=== PATIENT | male | born 1940 | race Two or more races ===

== ENCOUNTER 2017-01-26 11:36 | Inpatient (IN) | payer MEDICARE, OTHER ==
[~2017-01-26] VITALS: Ht 175.3 cm; Wt 105.7 kg
[~2017-01-26 11:36] MED LIST: ASPI1CPM PO; BICA50TA6 PO; ERGO500047 PO; GABA-534 PO; INSU3INS6 SUBCUT; LEVO50TA8 PO; METF500T4 PO; METO-306 PO; OMEG10006 PO; PIOG30TA2 PO; SIMV40TA5 PO; SITA100T PO; TAMS0.4C34 PO; TEMA15CA PO; TRAV5DRO EACHEYE; VALS320T2 PO
--- NOTE | 2017-01-26 11:36 | NUR ---
[id number] FROM [facility], BS-190. PLACED ON MONITOR AWATING MD ORDER
[2017-01-26] MEDS ORDERED: ACETAMINOPHEN ES 500 MG TABLET PO ONE (12:00)
[2017-01-26] MEDS ORDERED: CEFTRIAXONE 1GM BAG (ER ONLY) 50 ML IV ONE ×2 (12:00→13:14)
[2017-01-26] MEDS ORDERED: IV NS 0.9% 500 ML BAG IV ONE (12:00)
[2017-01-26] MEDS ORDERED: IV NS 0.9% 1,000 ML BAG IV ONE (12:00)
--- NOTE | 2017-01-26 12:55 | NUR ---
CALLED DR REAL OFFICE, DR BRITTANI PANDEY.
[2017-01-26] MEDS ORDERED: AZITHROMYCIN 500 MG in IV D5W 250 ML IV ONE (13:00)
[2017-01-26] MEDS ORDERED: VANCOMYCIN 1 GM in IV D5W 250 ML IV ONE (13:00)
[2017-01-26] MEDS ORDERED: ACETAMINOPHEN 325 MG TABLET ONE (13:14)
[2017-01-26] MEDS ORDERED: ACETAMINOPHEN ES 500 MG TABLET ONE (13:17)
[2017-01-26 13:18] LABS: BASOPHILS % (AUTO) 0.4 % (0.0-2.0); EOSINOPHILS % (AUTO) 0.2 % (0.0-6.0); HEMATOCRIT 29 % (39-51); HEMOGLOBIN 9.2 g/dL (13.5-17.5); LYMPHOCYTES # (AUTO) 1.6 /CMM (0.8-4.8); LYMPHOCYTES % (AUTO) 18.3 % (20.0-44.0); MEAN CORPUSCULAR HEMOGLOBIN 24 PG (26.0-33.0); MEAN CORPUSCULAR HGB CONC 32 g/dl (31.0-36.0); MEAN CORPUSCULAR VOLUME 75 fL (80-96); MONOCYTES # (AUTO) 0.8 /CMM (0.1-1.30); MONOCYTES % (AUTO) 9.5 % (2.0-12.0); NEUTROPHILS # (AUTO) 6.5 /CMM (1.8-8.9); NEUTROPHILS % (AUTO) 71.6 % (43.0-81.0); PLATELET COUNT (AUTO) 226 /CMM (150-450); RDW COEFFICIENT OF VARIATION 20.3 (11.5-15.0); RED BLOOD CELL COUNT(AUTO) 3.89 MIL/uL (4.5-6.0); WHITE BLOOD COUNT (AUTO) 8.9 K/uL (4.3-11.0)
--- NOTE | 2017-01-26 13:25 | NUR ---
RE PAGED DR WYNNE.
[2017-01-26 13:55] LABS: CALCIUM, SERUM 8.9 mg/dL (8.5-10.1); CARBON DIOXIDE 22 mmol/L (21-32); CHLORIDE 100 mmol/L (98-107); CREATININE 1.1 mg/dL (0.6-1.3); GLUCOSE 139 mg/dL (74-106); POTASSIUM 4.2 mmol/L (3.5-5.1); SODIUM SERUM 135 mmol/L (136-145); UREA NITROGEN, BLOOD 10 mg/dL (7-18)
[2017-01-26 13:57] LABS: INR 1.79 (0.87-1.13); PROTHROMBIN TIME 18.7 SECS (9.5-12.7)
[2017-01-26 13:58] LABS: TROPONIN I < 0.017 ng/mL (0.00-0.056)
[2017-01-26 14:09] LABS: ALANINE AMINOTRANSFERASE 17 U/L (12-78); ALBUMIN 3.9 g/dL (3.4-5.0); ALKALINE PHOSPHATASE 50 U/L (46-116); ASPARTATE AMINOTRANSFERASE 24 U/L (15-37); BILIRUBIN,DIRECT 0.2 mg/dL (0.0-0.2); BILIRUBIN,TOTAL 0.8 mg/dL (0.2-1.0); TOTAL PROTEIN, SERUM 7.8 g/dL (6.4-8.2)
[2017-01-26] MEDS ORDERED: OMEP20TA68 PO (14:18)
[2017-01-26] MEDS ORDERED: OXYB10TA4 PO (14:18)
[2017-01-26] MEDS ORDERED: CHOL500052 PO (14:18)
[2017-01-26] MEDS ORDERED: METO-304 PO (14:18)
[2017-01-26] MEDS ORDERED: FERR-58 PO (14:18)
[2017-01-26] MEDS ORDERED: CALC500T51 PO (14:18)
[2017-01-26] MEDS ORDERED: TRAM50TA2 PO (14:18)
[2017-01-26] MEDS ORDERED: ASCO-340 PO (14:18)
[2017-01-26] MEDS ORDERED: RIVA10TA PO (14:18)
--- NOTE | 2017-01-26 16:00 | NUR ---
REPORT GIVEN TO JENNY TELEMETRY SEPSIS PNA DR WYNNE ADMITTING
[2017-01-26 16:20] VITALS: BP 124/69
--- NOTE | 2017-01-26 16:20 | NUR ---
tele alumina refinery operator: admission admitted this 76 yr old obese pt from e.. with dx: pneumonia. awake, a/ox4. no c/o pain or any discomfort. satting 92% on room air, denies sob. oriented to room and surroundings. tele placed, afib=37-40's. no apparent distress noted. will continue to monitor.
--- NOTE | 2017-01-26 16:30 | NUR ---
tele veterinary meat inspector: notes dr. farias here and informed md re: hr 37-40's afib on the monitor. dr. farias in room assessing pt. no new order at this time, but informed pt that his beta mendez will be on hold.
[2017-01-26] MEDS ORDERED: DEXTROSE 50%-WATER 50 ML DISP.SYRIN IV PRN (17:00)
[2017-01-26] MEDS ORDERED: TRAMADOL HCL 50 MG TABLET PO PRN (17:30)
--- NOTE | 2017-01-26 17:30 | NUR ---
tele cable ferry operator: notes o2 at 2l/min via n/c provided. dinner ordered. call light within reach. will monitor.
[2017-01-26] MEDS: INSULIN REGULAR, HUMAN 100 UNIT/ML 3 ML VIAL SQ PRN ×2 (17:37→22:09)
[2017-01-26] MEDS: BLOOD SUGAR DIAGNOSTIC 1 EACH STRIP IN SCH ×2 (18:15→22:06)
[2017-01-26] MEDS: PANTOPRAZOLE 40 MG TABLET.DR PO SCH (18:18)
[2017-01-26] MEDS: GABAPENTIN 300 MG CAPSULE PO SCH (18:18)
[2017-01-26] MEDS: METFORMIN 500 MG TABLET PO SCH (18:18)
--- NOTE | 2017-01-26 18:30 | NUR ---
tele director child abuse therapy: notes pt having dinner at this time with hob elevated at 90 degree. instructed to call for assistance. will monitor.
--- NOTE | 2017-01-26 20:00 | NUR ---
Recieved from 2nd floor at the beginning of the shift. Alert and orientated speech clear moving about in the bed independently. Smiling and pleasent. Tele placed on the pt and sr seen
--- NOTE | 2017-01-26 20:00 | NUR ---
pt recieved alert and orientated. Spech clear O2 N/C on at 2 liters . Incontinent of stool mushy brown stool, wearing a diaper dt incontinence. Noted limited un able to move the left arm s/p CVA history.
[2017-01-26 21:41] VITALS: BP 106/59
[2017-01-26] MEDS ORDERED: INSULIN DETEMIR 100 UNIT/ML CARTRIDGE SQ SCH (22:00)
[2017-01-26] MEDS: TAMSULOSIN 0.4 MG CAP.SR.24H PO SCH (22:09)
[2017-01-26] MEDS: SIMVASTATIN 40 MG TABLET PO SCH (22:09)
[2017-01-26] MEDS: LATANOPROST EYE DROP 0.005% 2.5 ML BOTTLE EACHEYE SCH (22:10)
[2017-01-26] MEDS: IV NS 0.9% 1,000 ML IV PRN (23:24)
[2017-01-26] MEDS: BICALUTAMIDE 50 MG TABLET PO SCH (23:28)
[2017-01-27 00:27] VITALS: BP 136/74
[2017-01-27] MEDS ORDERED: DEXTROSE 50%-WATER 50 ML DISP.SYRIN IV PRN (01:00)
[2017-01-27] MEDS ORDERED: INSULIN REGULAR, HUMAN 100 UNIT/ML 3 ML VIAL SQ PRN (01:00)
[2017-01-27] MEDS ORDERED: ENOXAPARIN SODIUM 40 MG/0.4 ML DISP.SYRIN SQ SCH (01:00)
[2017-01-27] MEDS ORDERED: HYDROCODONE/APAP 5/325MG 1 EACH TABLET PO PRN (01:00)
[2017-01-27 04:00] VITALS: BP 137/70
--- NOTE | 2017-01-27 05:24 | NUR ---
stool for CDIFF collected and sent to lab, consistency thick mushy brown and foul smelling kept patient clean dt his incontinence.
[2017-01-27] MEDS ORDERED: NITROGLYCERIN PACKET 1 GM PACKET TOP SCH (06:00)
[2017-01-27] MEDS: BLOOD SUGAR DIAGNOSTIC 1 EACH STRIP IN SCH ×4 (06:10→23:07)
--- NOTE | 2017-01-27 06:12 | NUR ---
Blood sugar this AM 01/27/2017 is 116 no insulin given per sliding scale
[2017-01-27 06:48] VITALS: BP 146/58
[2017-01-27 07:12] LABS: BASOPHILS % (AUTO) 0.4 % (0.0-2.0); HEMATOCRIT 29 % (39-51); HEMOGLOBIN 8.8 g/dL (13.5-17.5); LYMPHOCYTES # (AUTO) 1.9 /CMM (0.8-4.8); LYMPHOCYTES % (AUTO) 23.9 % (20.0-44.0); MEAN CORPUSCULAR HEMOGLOBIN 24 PG (26.0-33.0); MEAN CORPUSCULAR HGB CONC 31 g/dl (31.0-36.0); MEAN CORPUSCULAR VOLUME 78 fL (80-96); MONOCYTES # (AUTO) 0.9 /CMM (0.1-1.30); MONOCYTES % (AUTO) 10.8 % (2.0-12.0); NEUTROPHILS # (AUTO) 5.2 /CMM (1.8-8.9); NEUTROPHILS % (AUTO) 64.9 % (43.0-81.0); PLATELET COUNT (AUTO) 198 /CMM (150-450); RED BLOOD CELL COUNT(AUTO) 3.67 MIL/uL (4.5-6.0)
[2017-01-27 07:20] LABS: CALCIUM, SERUM 8.3 mg/dL (8.5-10.1); CARBON DIOXIDE 23 mmol/L (21-32); CHLORIDE 101 mmol/L (98-107); CREATININE 1.2 mg/dL (0.6-1.3); GLUCOSE 110 mg/dL (74-106); MAGNESIUM 1.6 mg/dL (1.8-2.4); SODIUM SERUM 135 mmol/L (136-145); UREA NITROGEN, BLOOD 13 mg/dL (7-18)
[2017-01-27] MEDS ORDERED: BLOOD SUGAR DIAGNOSTIC 1 EACH STRIP IN SCH (07:30)
[2017-01-27] MEDS ORDERED: PANTOPRAZOLE 40 MG TABLET.DR PO SCH (07:30)
[2017-01-27 07:41] LABS: CHOLESTEROL 64 mg/dL (<200); HDL CHOLESTEROL 36 mg/dL (40-60); LDL 25 mg/dL (0-99); TRIGLYCERIDES 57 mg/dL (30-150)
--- NOTE | 2017-01-27 07:42 | NUR ---
MS RN: INITIAL NOTE RECEIVED PT A/OX4. ON TELE MONITOR WITH CONTROLLED A.FIB AT 60 BPM. NO DISTRESS NOTED. NO SOB NOTED NO PAIN NOTED. ON 2L NC SATING AT 95%. INCONTINENT. LEFT SIDED WEAKNESS DUE TO HX OF CVA. RT WRIST IV RUNNING NS AT 75ML/HR. SITE CLEAR AND PATENT. NO BLEEDING OR REDNESS NOTED. RESTING COMFORTABLY IN BED. CALL LIGHT WITHIN REACH.
[2017-01-27 08:00] VITALS: BP 130/68
[2017-01-27] MEDS: PANTOPRAZOLE 40 MG TABLET.DR PO SCH (08:50)
[2017-01-27] MEDS: OXYBUTYNIN CHLORIDE ER 5 MG TAB PO SCH (08:50)
[2017-01-27] MEDS: GABAPENTIN 300 MG CAPSULE PO SCH ×2 (08:50→17:23)
[2017-01-27] MEDS: VALSARTAN 80 MG TABLET PO SCH (08:50)
[2017-01-27] MEDS: FERROUS SULFATE (325 MG) 325 MG/TAB TABLET PO SCH (08:50)
[2017-01-27] MEDS: LEVOTHYROXINE SODIUM 50 MCG TABLET PO SCH (08:50)
[2017-01-27] MEDS: CALCIUM CARBONATE (1250) 500 MG TABLET PO SCH ×2 (08:50→17:23)
[2017-01-27] MEDS: METFORMIN 500 MG TABLET PO SCH ×2 (08:51→17:23)
[2017-01-27] MEDS ORDERED: POTASSIUM CHLORIDE 10 MEQ/50 ML PREMIXED IVPB FOR PERIPHERAL LINE IV ONE (09:00)
[2017-01-27] MEDS ORDERED: METFORMIN 500 MG TABLET PO SCH (09:00)
[2017-01-27] MEDS ORDERED: FUROSEMIDE 40 MG/4 ML VIAL IV SCH (09:00)
[2017-01-27] MEDS: PIOGLITAZONE HCL 15 MG TABLET PO SCH (09:00)
[2017-01-27] MEDS ORDERED: ASCORBIC ACID 500 MG TABLET PO SCH (09:00)
--- NOTE | 2017-01-27 09:00 | NUR ---
BLOOD GLUCOSE 181. ADMINISTERED LEVAMIR 20 UNITS ARE ORDERED.
[2017-01-27] MEDS: INSULIN DETEMIR 100 UNIT/ML CARTRIDGE SQ SCH (09:05)
[2017-01-27] MEDS: ACETAMINOPHEN 650 MG/20.3 ML UDC NG PRN ×2 (09:10→18:15)
--- NOTE | 2017-01-27 10:26 | NUR ---
AWAITED FOR ACTOS TO BE DELIVERED FROM PHARMACY. CALLED 3 TIMES
[2017-01-27] MEDS: Magnesium 1GM/D5W 100ML PREMIX 100 ML IV SCH ×2 (11:08→12:08)
[2017-01-27] MEDS: INSULIN REGULAR, HUMAN 100 UNIT/ML 3 ML VIAL SQ PRN ×3 (12:08→23:17)
[2017-01-27] MEDS: CEFTRIAXONE 1 G in IV D5W 50 ML IV SCH (13:07)
[2017-01-27] MEDS: IV NS 0.9% 1,000 ML IV PRN (13:59)
[2017-01-27] MEDS: ZITHROMAX 500 MG/250 ML D5W IV SCH ×2 (14:00)
[2017-01-27 16:00] VITALS: BP 106/73
[2017-01-27] MEDS: RIVAROXABAN 10 MG TABLET PO SCH (18:15)
--- NOTE | 2017-01-27 18:39 | NUR ---
MS RN: CLOSING NOTE PT A/OX4. TOOK ALL MEDICATIONS ON TIME. NO ADVERSE REACTIONS NOTED. NO PAIN NOTED. NO SOB NOTED. ON 2 L NC SATING AT 96%. INCONTINENT. USES DIAPER. TURNED AND REPOSITIONED Q 2HOURS. SKIN INTACT. R WRIST #22 RUNNING NS AT 75ML/HR. SITE CLEAR AND PATENT.RESTING COMFORTABLY IN BED. CALL LIGHT WITHIN REACH.
--- NOTE | 2017-01-27 19:30 | NUR ---
MS RN OPENING NOTES: PATIENT IN BED, AOX3, ON ROOM AIR, BREATHING EVEN AND UNLABORED. WITH O2 AT 2 LPM VIA NC, BREATHING EVEN AND UNLABORED. BREATH SOUNDS DIMINISHED, ALSO NOTED TO HAVE OCCASIONAL COUGH. APPEARS CALM AND IN NO DISTRESS. DENIES PAIN AT THIS TIME. PIV OVER R WRIST F 22 INTACT AND PATENT, INFUSING WELL WITH NS RUNNING AT 75 ML/HR. PROVIDED FOR COMFORT AND SAFETY. BED IN LOWEST AND LOCKED POSITION, HOB ELEVATED. CONT TO MONITOR.
[2017-01-27 20:00] VITALS: BP 133/78
--- NOTE | 2017-01-27 20:00 | NUR ---
RN NOTES: PATIENT HAS FEVER OF 103. OTHER VS STABLE, BP: 133/78, HR: 76, RR: 22, O2 SAT 94% ON O2 AT 2 LPM. COOLING MEASURES INITIATED. PATIENT HAS JUST BEEN GIVEN TYLENOL AT 1830 PM. WILL CONT TO MONITOR.
--- NOTE | 2017-01-27 22:00 | NUR ---
RN NOTES: BLOOD SUGAR : 131, ADMINISTERED 2 UNITS REGULAR INSULIN PER SCALE AND GAVE LIGHT SNACK TO PATIENT. CONT WITH ASPIRATION PRECAUTIONS.
--- NOTE | 2017-01-27 22:10 | NUR ---
RN NOTES: TEMP RECHECKED, STILL 103. GAVE BED BATH TO PATIENT, ENCOURAGED PO COLD FLUIDS. PAGED DR WYNNE TO INFORM.
[2017-01-27] MEDS: BICALUTAMIDE 50 MG TABLET PO SCH ×2 (23:06→23:19)
[2017-01-27] MEDS: LATANOPROST EYE DROP 0.005% 2.5 ML BOTTLE EACHEYE SCH (23:07)
[2017-01-27] MEDS: TAMSULOSIN 0.4 MG CAP.SR.24H PO SCH (23:08)
[2017-01-27] MEDS: SIMVASTATIN 40 MG TABLET PO SCH (23:08)
--- NOTE | 2017-01-28 | NUR ---
RN NOTES: TEMP DECREASED TO 100.8, ADMINISTERED TYLENOL AT THIS TIME, STILL AWAITING FOR DR WYNNE'S CALL BACK. IV FLUIDS CONTINUOUSLY RUNNING AT 75 ML/HR. NO CHANGES IN PATIENT'S LOC, AOX3-4, APPEARS COMFORTABLE, BP: 129/73, HR: 79, O2 SAT 92% . CONT WITH COOLING MEASURES,.
[2017-01-28] MEDS: ACETAMINOPHEN 650 MG/20.3 ML UDC NG PRN ×2 (00:13→19:58)
[2017-01-28 01:20] VITALS: BP 129/73
--- NOTE | 2017-01-28 04:01 | NUR ---
RN NOTES: PATIENT'S TEMP DECREASED TO 98.6. ASLEEP BUT EASILY AWAKENED, BREATHIGN EVEN AND UNLABORED.
[2017-01-28] MEDS: IV NS 0.9% 1,000 ML IV PRN (04:37)
[2017-01-28] MEDS: LEVOTHYROXINE SODIUM 50 MCG TABLET PO SCH (06:39)
[2017-01-28] MEDS: BLOOD SUGAR DIAGNOSTIC 1 EACH STRIP IN SCH ×4 (06:39→22:08)
[2017-01-28] MEDS: PANTOPRAZOLE 40 MG TABLET.DR PO SCH (06:39)
[2017-01-28] MEDS: INSULIN REGULAR, HUMAN 100 UNIT/ML 3 ML VIAL SQ PRN ×4 (06:43→22:20)
--- NOTE | 2017-01-28 07:00 | NUR ---
RN INITIAL NOTES REPORT RECEIVED AT THE BEDSIDE. PATIENT IS SLEEPING. NO SOB OR DISTRESS NOTED AT THIS TIME. PATIENT DOES NOT APPEAR TO BE IN PAIN. NO FACIAL GRIMACE NOTED. BED IN A LOW POSITION, CALL LIGHT WITHIN PATIENT REACH. WILL CONTINUE TO MONITOR.
--- NOTE | 2017-01-28 07:00 | NUR ---
MS RN CLOSING NOTES: PATIENT IN BED, AOX4, ON O2 AT 3 LPM VIA NC, BREATHING EVEN AND UNLABORED, BUT STILL NOTED TO HAVE OCCASIONAL COUGH. MAINTAINED HOB ELEVATED. R WRIST G 22 INTACT AND INFUSING WELL WITH NS RUNNING AT 75 ML/HR. AM BLOOD SUGAR CHECKED AT 156 MG/DL, ADMINISTERED 2 UNITS REGULAR INSULIN PER SCALE. DUE MEDS GIVEN. PROVIDED FOR COMFORT AND SAFETY. BED IN LOWEST AND LOCKED POSITION, SIDERAILS UP X3. WILL ENDORSE TO AM RN FOR ABRAHAM.
[2017-01-28 08:00] VITALS: BP 134/80
[2017-01-28] MEDS: GABAPENTIN 300 MG CAPSULE PO SCH ×4 (09:00→17:35)
[2017-01-28] MEDS: FERROUS SULFATE (325 MG) 325 MG/TAB TABLET PO SCH (09:11)
[2017-01-28] MEDS: OXYBUTYNIN CHLORIDE ER 5 MG TAB PO SCH (09:11)
[2017-01-28] MEDS: LINAGLIPTIN 5 MG TABLET PO SCH (09:11)
[2017-01-28] MEDS: CALCIUM CARBONATE (1250) 500 MG TABLET PO SCH ×3 (09:11→17:35)
[2017-01-28] MEDS: METFORMIN 500 MG TABLET PO SCH ×2 (09:11→17:28)
[2017-01-28] MEDS: PIOGLITAZONE HCL 15 MG TABLET PO SCH (09:12)
[2017-01-28] MEDS: VALSARTAN 80 MG TABLET PO SCH (09:12)
[2017-01-28] MEDS: INSULIN DETEMIR 100 UNIT/ML CARTRIDGE SQ SCH (09:14)
[2017-01-28] MEDS ORDERED: PETROLATUM,WHITE PACKET 5 GM PACKET TP PRN (11:30)
[2017-01-28] MEDS: CEFTRIAXONE 1 G in IV D5W 50 ML IV SCH (12:06)
[2017-01-28] MEDS: ZITHROMAX 500 MG/250 ML D5W IV SCH ×2 (13:10)
[2017-01-28 14:21] LABS: APPEARANCE,URINE CLEAR (CLEAR); BILIRUBIN,URINE NEGATIVE (NEGATIVE); BLOOD, URINE 1+ Ery/uL (NEGATIVE); COLOR,URINE YELLOW (YELLOW); KETONES,URINE 1+ (NEGATIVE); LEUKOCYTE ESTERASE ,URINE NEGATIVE (NEGATIVE); NITRITE, URINE NEGATIVE (NEGATIVE); PH,URINE 5.5 (5.0-8.0); PROTEIN,URINE TRACE mg/dl (NEGATIVE); UGLUCOSE NEGATIVE (NEGATIVE); UROBILINOGEN,URINE 0.2 EU/dL (0.2)
[2017-01-28 14:35] LABS: BACTERIA,URINE None seen /HPF (None Seen); SQUAMOUS EPITHELIAL CELL,UR Few /HPF (None Seen); WBC,URINE 0-2 /HPF (0-3)
[2017-01-28] MEDS ORDERED: Z GUARD REMEDY 2 OZ OINT TP PRN (15:00)
[2017-01-28 16:00] VITALS: BP 138/70
[2017-01-28] MEDS: RIVAROXABAN 10 MG TABLET PO SCH (17:29)
[2017-01-28 17:45] LABS: CALCIUM, SERUM 8.1 mg/dL (8.5-10.1); CARBON DIOXIDE 23 mmol/L (21-32); CHLORIDE 101 mmol/L (98-107); GLUCOSE 165 mg/dL (74-106); MAGNESIUM 1.7 mg/dL (1.8-2.4); POTASSIUM 3.7 mmol/L (3.5-5.1); SODIUM SERUM 135 mmol/L (136-145); UREA NITROGEN, BLOOD 7 mg/dL (7-18)
[2017-01-28 18:06] LABS: BASOPHILS % (AUTO) 0.5 % (0.0-2.0); EOSINOPHILS % (AUTO) 0.3 % (0.0-6.0); HEMATOCRIT 30 % (39-51); HEMOGLOBIN 9.4 g/dL (13.5-17.5); LYMPHOCYTES # (AUTO) 1.5 /CMM (0.8-4.8); LYMPHOCYTES % (AUTO) 22.9 % (20.0-44.0); MEAN CORPUSCULAR HEMOGLOBIN 24 PG (26.0-33.0); MEAN CORPUSCULAR HGB CONC 31 g/dl (31.0-36.0); MEAN CORPUSCULAR VOLUME 77 fL (80-96); MONOCYTES # (AUTO) 0.5 /CMM (0.1-1.30); MONOCYTES % (AUTO) 7.2 % (2.0-12.0); NEUTROPHILS # (AUTO) 4.4 /CMM (1.8-8.9); NEUTROPHILS % (AUTO) 69.1 % (43.0-81.0); PLATELET COUNT (AUTO) 187 /CMM (150-450); RDW COEFFICIENT OF VARIATION 21.9 (11.5-15.0); RED BLOOD CELL COUNT(AUTO) 3.96 MIL/uL (4.5-6.0); WHITE BLOOD COUNT (AUTO) 6.4 K/uL (4.3-11.0)
--- NOTE | 2017-01-28 18:19 | NUR ---
RECEIVED LAB RESULTS FOR PT CHEM PANEL AND MAGNESIUM IS 1.7. CALLED DR WYNNE TO INFORM. GAVE A VERBAL ORDER FOR 2G IV MAG NOW. ORDER PLACED, WILL CARRY OUT.
[2017-01-28] MEDS: Magnesium 1GM/D5W 100ML PREMIX 100 ML IV SCH ×2 (18:34→19:58)
--- NOTE | 2017-01-28 19:14 | NUR ---
NO SIGNIFICANT CHANGES IN PATIENT CONDITION THROUGHOUT THE SHIFT. NO SOB OR DISTRESS NOTED AT THIS TIME. PATIENT DENIES SIGNIFICANT PAIN. FIRST BAG OF MAGNESIUM STARTED. BED IN A LOW POSITION. CALL LIGHT WITHIN PATIENT REACH. ENDORSED TO TERELL TELLO, FOR ABRAHAM.
--- NOTE | 2017-01-28 19:30 | NUR ---
MS RN OPENING NOTES: PATIENT IN BED, AOX4, ON O2 AT 3 LPM VIA NC, BREATHING IS EVEN AND UNLABORED AT RATE OF 20-22 PER MIN, RHONCHI HEARD OVER UPPER CHEST, DIMINISHED BREATH SOUNDS AT BASES. APPEARS CALM AND IN NO DISTRESS, DENIES PAIN, ONLY SAYS THAT HE HAS THROAT DISCOMFORT. DRINKS WARM WATER TO SOOTHE. PIV OVER R WRIST G22 INTACT AND PATENT, INFUSING WELL WITH NS RUNNING AT 75 ML/HR. PROVIDED FOR COMFORT AND SAFETY. MAINTAINED HOB ELEVATED. BED IN LOWEST AND LOCKED POSITION, SIDERAILS UP X 3. CALL LIGHT WITHIN REACH. WILL CONT TO MONITOR.
[2017-01-28 20:00] VITALS: BP 127/68
--- NOTE | 2017-01-28 20:00 | NUR ---
RN NOTES: PATIENT'S TEMP AT 101.8, STARTED COOLING MEASURES, GAVE TYLENOL 650 MG PO. WILL CONT TO MONITOR.
[2017-01-28] MEDS: BICALUTAMIDE 50 MG TABLET PO SCH (22:06)
[2017-01-28] MEDS: LATANOPROST EYE DROP 0.005% 2.5 ML BOTTLE EACHEYE SCH (22:06)
[2017-01-28] MEDS: TAMSULOSIN 0.4 MG CAP.SR.24H PO SCH (22:07)
[2017-01-28] MEDS: SIMVASTATIN 40 MG TABLET PO SCH (22:07)
--- NOTE | 2017-01-28 22:20 | NUR ---
RN NOTES: BLOOD SUGAR CHECKED AT 149 MG/L, ADMINISTERED 2 UNITS REGULAR INSULIN PER SCALE AND GAVE JUICE. PATIENT'S TEMP CHECKED, DECREASED TO 100.8 AT THIS TIME. CONT WITH COOLING MEASURES.
[2017-01-29] MEDS: ACETAMINOPHEN 650 MG/20.3 ML UDC NG PRN (02:47)
--- NOTE | 2017-01-29 02:56 | NUR ---
RN NOTES: PATIENT'S TEMP IS 101 AT THIS TIME, GAVE TYLENOL 650 MG PO, COOLING MEASURES RESTARTED. PATIENT HAS CONGESTION, CRACKLES HEARD UPON AUSCULTATION. SUCTIONED MOUTH AND NASOPHARYNGEAL SECRETIONS. CALLED RT FOR BREATHING TREATMENT. O2 SAT AT 94% ON O2 AT 3 LPM
--- NOTE | 2017-01-29 03:15 | NUR ---
RN NOTES: RT AT BEDSIDE, DID DEEP SUCTIONING OF NASOPHARYNGEAL SECRETIONS. BREATHING TREATMENT ALSO GIVEN. WILL CONT TO MONITOR.
[2017-01-29] MEDS: IPRATROPIUM NEB FS 0.5 MG/2.5 ML AMPUL.NEB NEB PRN ×4 (03:21→22:23)
[2017-01-29] MEDS: ALBUTEROL HALF STRENGTH 1.25 MG/3 ML VIAL.NEB NEB PRN ×4 (03:21→22:23)
[2017-01-29 05:00] VITALS: BP 139/83
--- NOTE | 2017-01-29 05:14 | NUR ---
RN NOTES: PAGED DR WYNNE TO INFORM OF PATIENT'S SOB AND CONTINUOUS FEVER.
--- NOTE | 2017-01-29 05:40 | NUR ---
RN NOTES: DR WYNNE CALLED BACK, ORDERS MADE FOR STAT CXR, ABG, STOP IV FLUIDS FOR NOW, MOTRIN PRN AND ONE DOSE OF LASIX 40 MG IV. ORDERS NOTED AND CARRIED OUT.
[2017-01-29] MEDS ORDERED: IBUPROFEN 400 MG TABLET ONE (05:59)
[2017-01-29] MEDS ORDERED: FUROSEMIDE 40 MG/4 ML VIAL ONE (05:59)
[2017-01-29] MEDS ORDERED: IBUPROFEN 400 MG TABLET PO PRN (06:00)
[2017-01-29] MEDS ORDERED: FUROSEMIDE 40 MG/4 ML VIAL IV ONE ×2 (06:00→16:00)
--- NOTE | 2017-01-29 06:10 | NUR ---
RN NOTES: RT AT BEDSIDE TO DO ABG AND DEEP SUCTIONING.
[2017-01-29 06:20] LABS: ABG BASE EXCESS -3.3 mmol/L; ABG OXYGEN SATURATION 98.5 % (92.0-98.5); ABG PCO2 22.4 mmHg (35.0-45.0); ABG PH 7.524 (7.350-7.450); COHb 0.3 % (0.5-1.5); MetHb 0.6 % (0.0-1.5); O2Hb 97.6 % (94.0-97.0); SITE, ABG Left Radial
[2017-01-29] MEDS: INSULIN REGULAR, HUMAN 100 UNIT/ML 3 ML VIAL SQ PRN ×4 (06:37→21:29)
[2017-01-29] MEDS: BLOOD SUGAR DIAGNOSTIC 1 EACH STRIP IN SCH ×4 (06:38→21:28)
--- NOTE | 2017-01-29 06:58 | NUR ---
MS RN CLOSING NOTES: PATIENT IN BED, AOX4, ON O2 AT 3 LPM VIA NC, BREATHING WITH EVEN EXPANSION, BUT STILL WITH SOB, RR AT 28-30, APPEARS CONGESTED, AUSCULTATED CRACKLES OVER LUNG DOTY. MAINTAINED HOB ELEVATED, MONITORING O2 SAT, NOT AT 92%. PIV OVER R WRIST G 22 INTACT AND PATENT TO FLUSH, HOLDING IV FLUIDS FOR NOW UNTIL FURTHER ORDERS FROM DR WYNNE. LATEST CXR UNCHANGED FROM YESTERDAY. PROVIDED FOR COMFORT AND SAFETY. BED IN LOWEST AND LOCKED POSITION, SIDERAILS UP X3. WILL ENDORSE TO AM RN OR ABRAHAM
[2017-01-29 08:00] VITALS: BP 101/63
--- NOTE | 2017-01-29 08:00 | NUR ---
MS RN OPENING NOTE RECEIVED BEDSIDE SBAR REPORT ON THE PATIENT. PATIENT IS A/O X2, FORGETFUL, CONFUSED AT TIMES. PATIENT IS CONGESTED, CRACKLES AUSCULTATED IN BILATERAL LUNG BASES. PRESENTS WITH COARSE BREATHING. SPO2 96% ON OXYGEN 3L/MIN VIA NASAL CANNULA. DENIES PAIN/DISCOMFORT AT THIS TIME. PATIENT IS IN BED, AWAKE, RESPONSIVE. BED IS LOCKED, IN LOWEST POSITION, SIDE RAILS UP X3, BED ALARM IS ON. CALL LIGHT WITHIN REACH. EDUCATED THE PATIENT TO CALL FOR ASSISTANCE USING THE CALL LIGHT. PATIENT VERBALIZED UNDERSTANDING. WILL CONTINUE TO ASSESS/MONITOR THROUGHOUT THE SHIFT.
[2017-01-29] MEDS: PIOGLITAZONE HCL 15 MG TABLET PO SCH (08:14)
[2017-01-29] MEDS: FERROUS SULFATE (325 MG) 325 MG/TAB TABLET PO SCH (08:15)
[2017-01-29] MEDS: OXYBUTYNIN CHLORIDE ER 5 MG TAB PO SCH (08:16)
[2017-01-29] MEDS: PANTOPRAZOLE 40 MG TABLET.DR PO SCH (08:16)
[2017-01-29] MEDS: LEVOTHYROXINE SODIUM 50 MCG TABLET PO SCH (08:16)
[2017-01-29] MEDS: CALCIUM CARBONATE (1250) 500 MG TABLET PO SCH ×2 (08:17→16:59)
[2017-01-29] MEDS: GABAPENTIN 300 MG CAPSULE PO SCH ×2 (08:18→18:09)
[2017-01-29] MEDS: LINAGLIPTIN 5 MG TABLET PO SCH (08:19)
[2017-01-29] MEDS: METFORMIN 500 MG TABLET PO SCH ×2 (08:19→16:59)
[2017-01-29] MEDS: VALSARTAN 80 MG TABLET PO SCH (08:19)
[2017-01-29] MEDS: INSULIN DETEMIR 100 UNIT/ML CARTRIDGE SQ SCH (08:21)
[2017-01-29] MEDS ORDERED: ERGOCALCIFEROL (VITAMIN D 2) 50,000 UNIT CAPSULE PO SCH (09:00)
--- NOTE | 2017-01-29 09:03 | NUR ---
PRN BREATHING TX GIVEN TO PT. PT BREATH SOUNDS BILATERAL INS AND EXP CRACKLES/ RALES PT HAS STRONG COUGH DID NOT DEEP SX. RN AWARE.
[2017-01-29] MEDS ORDERED: FEE PK DOSING 1 MIN EA MC ONE (12:24)
[2017-01-29] MEDS: VANCOMYCIN 1.25 GM in IV D5W 500 ML IV SCH (12:58)
--- NOTE | 2017-01-29 12:59 | NUR ---
SWIFT TENDER NOTE VANCOMYCIN ADMINISTERED PASSED SCHEDULED TIME. PATIENT WAS RECEIVING BED BATH AND THEN WAS TAKEN DOWNSTAIRS FOR CT SCAN. ADMINISTERING WHEN PATIENT ARRIVED BACK TO THE UNIT.
[2017-01-29] MEDS: PIPERACILLIN /TAZOBACTAM 3.375 G in IV D5W 50 ML IV SCH ×3 (14:38→23:24)
--- NOTE | 2017-01-29 14:51 | NUR ---
INDUSTRIAL PHOTOGRAPHER NOTE PATIENT'S MONITOR READING AFLUTTER. DR. HAWTHORNE NOTIFIED. DR. WYNNE NOTIFIED. NO NEW ORDERS RECEIVED.
[2017-01-29 16:00] VITALS: BP 106/68
[2017-01-29 16:05] VITALS: BP 106/68
[2017-01-29] MEDS: RIVAROXABAN 10 MG TABLET PO SCH (16:58)
--- NOTE | 2017-01-29 19:35 | NUR ---
TELE/RN NOTES RECEIVED PT. LYING IN BED. AWAKE, ALERT AND ORIENTED X2-3. BREATHING EVEN AND UNLABORED ON 3LPM O2 VIA NC. NO SOB, RESPIRATORY DISTRESS OR COMPLAINTS OF PAIN NOTED AT THIS TIME. PT. WITH RIGHT UPPER ARM MIDLINE PRESENT, PATENT AND INTACT. PT. WITH RIGHT WRIST 22 GAUGE IV SALINE LOCK PRESENT, PATENT AND INTACT. PT. WITH EXTERNAL APPLE SORTER PRESENT AND INTACT. CURRENT RHYTHM = AFIB/AFLUTTER HR 73. PER DAYSHIFT NURSE AWARE AND NO NEW ORDERS, WILL CONTINUE TO MONITOR. BED LOCKED AND IN LOWEST POSITION, SIDE RAILS UP X3, CALL LIGHT WITHIN REACH, BED ALARM ON, WILL CONTINUE TO MONITOR.
[2017-01-29 20:00] VITALS: BP 105/69
[2017-01-29] MEDS: SIMVASTATIN 40 MG TABLET PO SCH (21:28)
[2017-01-29] MEDS: TAMSULOSIN 0.4 MG CAP.SR.24H PO SCH (21:28)
[2017-01-29] MEDS: GUAIFENESIN LA 600 MG TABLET.SA PO SCH (21:28)
[2017-01-29] MEDS: BICALUTAMIDE 50 MG TABLET PO SCH (21:28)
[2017-01-29] MEDS: LATANOPROST EYE DROP 0.005% 2.5 ML BOTTLE EACHEYE SCH (21:28)
[2017-01-30] VITALS: BP 98/67
[2017-01-30] MEDS: VANCOMYCIN 1.25 GM in IV D5W 500 ML IV SCH (00:13)
[2017-01-30 04:00] VITALS: BP 124/84
[2017-01-30] MEDS: IPRATROPIUM NEB FS 0.5 MG/2.5 ML AMPUL.NEB NEB PRN ×2 (04:19→09:35)
[2017-01-30] MEDS: ALBUTEROL HALF STRENGTH 1.25 MG/3 ML VIAL.NEB NEB PRN ×2 (04:19→09:35)
[2017-01-30] MEDS: PIPERACILLIN /TAZOBACTAM 3.375 G in IV D5W 50 ML IV SCH ×4 (06:06→23:22)
[2017-01-30] MEDS: BLOOD SUGAR DIAGNOSTIC 1 EACH STRIP IN SCH ×4 (06:36→21:37)
[2017-01-30] MEDS: INSULIN REGULAR, HUMAN 100 UNIT/ML 3 ML VIAL SQ PRN ×3 (06:37→17:47)
[2017-01-30 06:49] LABS: CALCIUM, SERUM 8.3 mg/dL (8.5-10.1); CHLORIDE 98 mmol/L (98-107); CREATININE 1.1 mg/dL (0.6-1.3); GLUCOSE 166 mg/dL (74-106); POTASSIUM 3.2 mmol/L (3.5-5.1); SODIUM SERUM 135 mmol/L (136-145); UREA NITROGEN, BLOOD 10 mg/dL (7-18)
--- NOTE | 2017-01-30 07:01 | NUR ---
TELE/RN NOTES PT. IS LYING IN BED RESTING. BREATHING EVEN AND UNLABORED ON 3LPM O2 VIA NC. NO SOB, RESPIRATORY DISTRESS OR COMPLAINTS OF PAIN NOTED AT THIS TIME. PT. WITH RIGHT UPPER ARM MIDLINE PRESENT, PATENT AND INTACT. PT. WITH RIGHT WRIST 22 GAUGE IV SALINE LOCK PRESENT, PATENT AND INTACT. PT. WITH EXTERNAL ENTOMOLOGY PROFESSOR PRESENT AND INTACT. CURRENT RHYTHM = AFIB HR 75. ALL PT. NEEDS MET. ALL DUE MEDICATIONS GIVEN. PT. OFFLOADED, TURNED AND REPOSITIONED Q2H AND NEEDED. BED LOCKED AND IN LOWEST POSITION, SIDE RAILS UP X3, CALL LIGHT WITHIN REACH, BED ALARM ON, WILL ENDORSE TO DAYSHIFT NURSE FOR CONTINUITY OF CARE.
[2017-01-30 07:09] LABS: CARBON DIOXIDE 26 mmol/L (21-32)
[2017-01-30 08:00] VITALS: BP 120/80
--- NOTE | 2017-01-30 08:00 | NUR ---
TELE/RN AM SHIFT INITIAL NOTES RECEIVED PT AWAKE SITTING IN BED, PT A/O X 2-3, DENIES ANY SYMPTOMS AT THIS TIME, NO ACUTE CHANGE OF CONDITION NOTED. ON 3L O2 VIA N/C SATURATING @ 100%, NOTED WITH RHONCHI/CRACKLES LUNG SOUNDS, RESPIRATIONS EVEN AND UNLABORED. ON TELE WITH A-FIB AND A-FLUTTER CONTROLLED, HR 76. IV SITE FLUSHED, PATENT WITH NO S/S OF INFECTION, SL. PT IS COMFORTABLE AT THIS TIME. SCHEDULED AM MEDS TO BE GIVEN. CL WITHIN REACHED AND SAFETY MAINTAINED. ON GOING MONITORING.
[2017-01-30 08:55] LABS: MAGNESIUM 1.7 mg/dL (1.8-2.4); PHOSPHORUS 3.1 mg/dL (2.5-4.9)
[2017-01-30] MEDS: INSULIN DETEMIR 100 UNIT/ML CARTRIDGE SQ SCH (09:05)
[2017-01-30] MEDS: PIOGLITAZONE HCL 15 MG TABLET PO SCH (09:06)
[2017-01-30] MEDS: VALSARTAN 80 MG TABLET PO SCH (09:07)
[2017-01-30] MEDS: LEVOTHYROXINE SODIUM 50 MCG TABLET PO SCH (09:07)
[2017-01-30] MEDS: LINAGLIPTIN 5 MG TABLET PO SCH (09:07)
[2017-01-30] MEDS: OXYBUTYNIN CHLORIDE ER 5 MG TAB PO SCH (09:07)
[2017-01-30] MEDS: GABAPENTIN 300 MG CAPSULE PO SCH ×2 (09:07→17:29)
[2017-01-30] MEDS: GUAIFENESIN LA 600 MG TABLET.SA PO SCH ×2 (09:07→21:36)
[2017-01-30] MEDS: METFORMIN 500 MG TABLET PO SCH ×2 (09:07→17:29)
[2017-01-30] MEDS: PANTOPRAZOLE 40 MG TABLET.DR PO SCH (09:08)
[2017-01-30] MEDS: CALCIUM CARBONATE (1250) 500 MG TABLET PO SCH ×2 (09:08→17:29)
[2017-01-30] MEDS: FERROUS SULFATE (325 MG) 325 MG/TAB TABLET PO SCH (09:08)
[2017-01-30] MEDS: POTASSIUM CHLORIDE 20 MEQ TAB.PRT.SR PO SCH ×3 (09:09→13:08)
[2017-01-30 09:43] LABS: THYROID STIMULATING HORMONE 5.715 uIU/mL (0.358-3.74)
[2017-01-30 12:00] VITALS: BP 121/69
[2017-01-30] MEDS: VANCOMYCIN 1 GM in IV D5W 250 ML IV SCH (12:05)
[2017-01-30] MEDS ORDERED: IV NS 0.9% 500 ML IV ONE (12:30)
--- NOTE | 2017-01-30 15:41 | NUR ---
TELE/RN INFLUENZA SEROLOGY RESULT NOTIFIED DR. FINK OF INFLUENZA SEROLOGY RESULT VIA TEXT MESSAGE. INFLUENZA A DETECTED, INFLUENZA B NOT DETECTED. MONITORING CONTINUED.
[2017-01-30 16:00] VITALS: BP 127/71
[2017-01-30] MEDS ORDERED: OSELTAMIVIR PHOSPHATE 75 MG CAPSULE PO SCH (16:00)
--- NOTE | 2017-01-30 17:00 | NUR ---
TELE/RN AFTERNOON ROUNDS PM CARE PROVIDED. NO ACUTE CHANGE OF CONDITION. ON GOING MONITORING.
[2017-01-30] MEDS: OSELTAMIVIR PHOSPHATE 75 MG CAPSULE PO SCH (17:29)
--- NOTE | 2017-01-30 19:10 | NUR ---
TELE/RN NOTES RECEIVED PT. LYING IN BED. AWAKE, ALERT AND ORIENTED X 2-3. BREATHING EVEN AND UNLABORED ON 3LPM O2 VIA NC. NO SOB, RESPIRATORY DISTRESS OR COMPLAINTS OF PAIN NOTED AT THIS TIME. PT. WITH RIGHT UPPER ARM MIDLINE PRESENT, PATENT AND INTACT. PT. WITH RIGHT WRIST 22 GAUGE IV SALINE LOCK PRESENT, PATENT AND INTACT. PT. WITH EXTERNAL VIRTUALIZATION ENGINEER PRESENT AND INTACT. CURRENT RHYTHM = AFIB HR 77. BED LOCKED AND IN LOWEST POSITION, SIDE RAILS UP X3, CALL LIGHT WITHIN REACH, BED ALARM ON, WILL CONTINUE TO MONITOR.
--- NOTE | 2017-01-30 19:14 | NUR ---
TELE/RN AM SHIFT END NOTES ALL NEEDS MET. NO ACUTE CHANGE OF CONDITION NOTED DURING THE SHIFT. PT ENDORSED TO PM NURSE TO CONTINUE CARE. CL WITHIN REACHED AND SAFETY MAINTAINED.
[2017-01-30 20:00] VITALS: BP 130/81
[2017-01-30] MEDS: BICALUTAMIDE 50 MG TABLET PO SCH (21:36)
[2017-01-30] MEDS: LATANOPROST EYE DROP 0.005% 2.5 ML BOTTLE EACHEYE SCH (21:36)
[2017-01-30] MEDS: TAMSULOSIN 0.4 MG CAP.SR.24H PO SCH (21:36)
[2017-01-30] MEDS: SIMVASTATIN 40 MG TABLET PO SCH (21:36)
[2017-01-31] VITALS: BP 117/68
[2017-01-31] MEDS: VANCOMYCIN 1 GM in IV D5W 250 ML IV SCH ×2 (00:23→11:07)
[2017-01-31 04:00] VITALS: BP 113/70
[2017-01-31] MEDS: PIPERACILLIN /TAZOBACTAM 3.375 G in IV D5W 50 ML IV SCH ×2 (06:16→12:23)
[2017-01-31 06:33] LABS: BASOPHILS % (AUTO) 0.4 % (0.0-2.0); EOSINOPHILS # (AUTO) 0.1 /CMM (0.0-0.7); HEMATOCRIT 30 % (39-51); HEMOGLOBIN 9.6 g/dL (13.5-17.5); LYMPHOCYTES # (AUTO) 1.7 /CMM (0.8-4.8); LYMPHOCYTES % (AUTO) 24.4 % (20.0-44.0); MEAN CORPUSCULAR HEMOGLOBIN 24 PG (26.0-33.0); MEAN CORPUSCULAR HGB CONC 32 g/dl (31.0-36.0); MEAN CORPUSCULAR VOLUME 76 fL (80-96); MONOCYTES # (AUTO) 0.5 /CMM (0.1-1.30); MONOCYTES % (AUTO) 7.4 % (2.0-12.0); NEUTROPHILS # (AUTO) 4.7 /CMM (1.8-8.9); NEUTROPHILS % (AUTO) 65.8 % (43.0-81.0); PLATELET COUNT (AUTO) 215 /CMM (150-450); RED BLOOD CELL COUNT(AUTO) 3.98 MIL/uL (4.5-6.0); WHITE BLOOD COUNT (AUTO) 7.2 K/uL (4.3-11.0)
[2017-01-31] MEDS: BLOOD SUGAR DIAGNOSTIC 1 EACH STRIP IN SCH ×2 (06:33→11:19)
[2017-01-31 06:43] LABS: ALANINE AMINOTRANSFERASE 23 U/L (12-78); ALBUMIN 2.8 g/dL (3.4-5.0); ALKALINE PHOSPHATASE 46 U/L (46-116); ASPARTATE AMINOTRANSFERASE 46 U/L (15-37); BILIRUBIN,TOTAL 0.9 mg/dL (0.2-1.0); CALCIUM, SERUM 8.5 mg/dL (8.5-10.1); CARBON DIOXIDE 26 mmol/L (21-32); CHLORIDE 101 mmol/L (98-107); CREATININE 0.9 mg/dL (0.6-1.3); GLUCOSE 114 mg/dL (74-106); MAGNESIUM 1.6 mg/dL (1.8-2.4); PHOSPHORUS 2.2 mg/dL (2.5-4.9); POTASSIUM 4.1 mmol/L (3.5-5.1); SODIUM SERUM 136 mmol/L (136-145); TOTAL PROTEIN, SERUM 6.7 g/dL (6.4-8.2); UREA NITROGEN, BLOOD 6 mg/dL (7-18)
--- NOTE | 2017-01-31 06:43 | NUR ---
TELE/RN NOTES PT. IS LYING IN BED RESTING. BREATHING EVEN AND UNLABORED ON 3LPM O2 VIA NC. NO SOB, RESPIRATORY DISTRESS OR COMPLAINTS OF PAIN NOTED AT THIS TIME. PT. WITH RIGHT UPPER ARM MIDLINE PRESENT, PATENT AND INTACT. PT. WITH RIGHT WRIST 22 GAUGE IV SALINE LOCK PRESENT, PATENT AND INTACT. PT. WITH EXTERNAL PATIENT CARE REPRESENTATIVE PRESENT AND INTACT. CURRENT RHYTHM = AFIB 76. ALL PT. NEEDS MET. ALL DUE MEDICATIONS GIVEN. ISOLATION PRECAUTIONS IMPLEMENTED AND IN PLACE. BED LOCKED AND IN LOWEST POSITION, SIDE RAILS UP X3, CALL LIGHT WITHIN REACH, BED ALARM ON, WILL ENDORSE TO DAYSHIFT NURSE FOR CONTINUITY OF CARE.
[2017-01-31 07:04] VITALS: BP 120/76
--- NOTE | 2017-01-31 07:30 | NUR ---
RECEIVED PT. IN AM ALERT AND ORIENTED X2-3.HEP LOCKS IN PLACE.IV AT TKO RATE.PT. REMAINS IN ISOL. FOR INFLUENZA.INFO ON PLAN FOR TODAY.
[2017-01-31 08:00] VITALS: BP 117/65
[2017-01-31] MEDS: LEVOTHYROXINE SODIUM 50 MCG TABLET PO SCH (08:11)
[2017-01-31] MEDS: PANTOPRAZOLE 40 MG TABLET.DR PO SCH (08:11)
[2017-01-31] MEDS: Magnesium 1GM/D5W 100ML PREMIX 100 ML IV SCH ×2 (08:29→09:41)
[2017-01-31 09:00] VITALS: BP 117/65
[2017-01-31] MEDS: PIOGLITAZONE HCL 15 MG TABLET PO SCH (09:00)
[2017-01-31] MEDS: LINAGLIPTIN 5 MG TABLET PO SCH (09:00)
[2017-01-31] MEDS: VALSARTAN 80 MG TABLET PO SCH (09:00)
[2017-01-31] MEDS: METFORMIN 500 MG TABLET PO SCH (09:00)
--- NOTE | 2017-01-31 09:30 | NUR ---
ORAL HYPOGLYCEMICS HELD DUE TO LOWER BGL.BP MED HELD BP LOW.
[2017-01-31] MEDS: INSULIN DETEMIR 100 UNIT/ML CARTRIDGE SQ SCH (09:37)
[2017-01-31] MEDS: GUAIFENESIN LA 600 MG TABLET.SA PO SCH (09:40)
[2017-01-31] MEDS: OSELTAMIVIR PHOSPHATE 75 MG CAPSULE PO SCH (09:40)
[2017-01-31] MEDS: CALCIUM CARBONATE (1250) 500 MG TABLET PO SCH (09:41)
[2017-01-31] MEDS: OXYBUTYNIN CHLORIDE ER 5 MG TAB PO SCH (09:41)
[2017-01-31] MEDS: GABAPENTIN 300 MG CAPSULE PO SCH (09:44)
[2017-01-31] MEDS ORDERED: OSEL75CA PO (09:44)
--- NOTE | 2017-01-31 10:30 | NUR ---
DR. ORTEGA IN AND DC ORDER GIVEN.PT. VERBALIZED THAT HE DID NOT WANT TO LEAVE.RN REASSURED PT. THAT HE IS BETTER.
--- NOTE | 2017-01-31 11:00 | NUR ---
TELE REMOVED.MG IV REPLACED.
[2017-01-31] MEDS: INSULIN REGULAR, HUMAN 100 UNIT/ML 3 ML VIAL SQ PRN (12:31)
[2017-01-31] MEDS ORDERED: SOD FERRIC GLUC 125 MG in IV NS 0.9% 100 ML IV SCH (14:00)
--- NOTE | 2017-01-31 15:00 | NUR ---
ALL ANTIBIOTICS GIVEN WELL IV FERLICETT.HEP LOCK AND MIDLINE IVS REMOVED.
--- NOTE | 2017-01-31 15:20 | NUR ---
ALL PAPERS SIGNED WELL BELONGING SHEET.REPORT TO SATIN FINISHER,REPORT CALLED TO FACILITY-RN SPOKE WITH INES.HEP LOCKS OUT.PT. DRESSED.TAKEN VIA AMB.TO FACILITY.
[2017-01-31] MEDS ORDERED: K PHOS NEUTRAL 250 MG TABLET PO ONE (15:23)
[2017-02-02] MEDS ORDERED: PIOG30TA2 PO (18:24)
[2017-02-16] MEDS ORDERED: CYANOCOBALAMIN 1,000 MCG/ML VIAL IM SCH (09:00)
== END 2017-01-31 15:30 | DRG 871 ==
LOC: ER 11:38 → TELE 15:23 → MED 01-27 09:06 → TELE 01-29 11:19 → MED 01-31 09:26
PROVIDERS: ADMIT Legal Medicine; ATTEND Legal Medicine
PROC: 05H533Z Insertion of Infusion Device into Right Subclavian Vein, Percutaneous Approach (ICD-10-PCS; principal; 2017-01-29)
PROC: B546ZZA Ultrasonography of Right Subclavian Vein, Guidance (ICD-10-PCS; 2017-01-29)
DX: A41.9 Sepsis, unspecified organism (principal); J18.9 Pneumonia, unspecified organism; J11.00 Influenza due to unidentified influenza virus with unspecified type of pneumonia; E44.0 Moderate protein-calorie malnutrition; I48.91 Unspecified atrial fibrillation; I49.5 Sick sinus syndrome; E11.649 Type 2 diabetes mellitus with hypoglycemia without coma; E83.42 Hypomagnesemia; I69.359 Hemiplegia and hemiparesis following cerebral infarction affecting unspecified side; D64.9 Anemia, unspecified; Z79.899 Other long term (current) drug therapy; I10 Essential (primary) hypertension; Z79.84 Long term (current) use of oral hypoglycemic drugs; Z85.46 Personal history of malignant neoplasm of prostate; N40.0 Benign prostatic hyperplasia without lower urinary tract symptoms; I25.10 Atherosclerotic heart disease of native coronary artery without angina pectoris; Z79.4 Long term (current) use of insulin; M19.90 Unspecified osteoarthritis, unspecified site; E03.9 Hypothyroidism, unspecified; J40 Bronchitis, not specified as acute or chronic; I70.0 Atherosclerosis of aorta
CPT/HCPCS: 31720; 36415; 36569; 36600; 71010-TC; 71250-TC; 80048-TC; 80053-TC; 80061-TC; 80076-TC; 80202-TC; 81000-TC; 82306; 82728-TC; 82803-TC; 82962-TC; 83540-TC; 83605-TC; 83735-TC; 84100-TC; 84439-TC; 84443-TC; 84484-TC; 85025-TC; 85730-TC; 86850-TC; 87040-TC; 87081-TC; 87086-TC; 87400; 93307-TC; 94799-TC; 97110-TC; 97530-TC; A4606; J0456; J0696; J1815; J1940; J2543; J2916; J3370; J3475; J7030; J7040; J7060; Z7610

== ENCOUNTER 2017-02-02 17:19 | Inpatient (IN) | payer MEDICARE, OTHER ==
[~2017-02-02] VITALS: Ht 175.3 cm; Wt 94.8 kg
[~2017-02-02 17:19] MED LIST changes: +ASCO-340 PO; -ASPI1CPM PO; +CALC500T51 PO; +CHOL500052 PO; +ERGO500040 PO; -ERGO500047 PO; +FERR-58 PO; -METO-306 PO; +METO-357 PO; -OMEG10006 PO; +OMEP20TA5 PO; +OSEL75CA PO; +OXYB10TA4 PO; -PIOG30TA2 PO; +RIVA10TA PO; -TEMA15CA PO; +TRAM50TA2 PO
--- NOTE | 2017-02-02 18:20 | NUR ---
CHANA FROM [facility]. AAO3. C/O WEAKNESS, COUGH.
[2017-02-02] MEDS ORDERED: PIOG30TA10 PO (18:24)
[2017-02-02 18:45] LABS: BASOPHILS # (AUTO) 0.1 /CMM (0.0-0.2); BASOPHILS % (AUTO) 0.6 % (0.0-2.0); EOSINOPHILS # (AUTO) 0.3 /CMM (0.0-0.7); EOSINOPHILS % (AUTO) 3.1 % (0.0-6.0); HEMATOCRIT 34 % (39-51); HEMOGLOBIN 10.8 g/dL (13.5-17.5); LYMPHOCYTES # (AUTO) 2.5 /CMM (0.8-4.8); LYMPHOCYTES % (AUTO) 27.7 % (20.0-44.0); MEAN CORPUSCULAR HEMOGLOBIN 24 PG (26.0-33.0); MEAN CORPUSCULAR HGB CONC 32 g/dl (31.0-36.0); MEAN CORPUSCULAR VOLUME 76 fL (80-96); MONOCYTES # (AUTO) 0.7 /CMM (0.1-1.30); MONOCYTES % (AUTO) 7.6 % (2.0-12.0); NEUTROPHILS # (AUTO) 5.5 /CMM (1.8-8.9); PLATELET COUNT (AUTO) 345 /CMM (150-450); RDW COEFFICIENT OF VARIATION 20.4 (11.5-15.0); RED BLOOD CELL COUNT(AUTO) 4.44 MIL/uL (4.5-6.0); WHITE BLOOD COUNT (AUTO) 9.1 K/uL (4.3-11.0)
[2017-02-02 18:56] LABS: CALCIUM, SERUM 9.2 mg/dL (8.5-10.1); CARBON DIOXIDE 23 mmol/L (21-32); CHLORIDE 100 mmol/L (98-107); CREATININE 0.9 mg/dL (0.6-1.3); GLUCOSE 189 mg/dL (74-106); SODIUM SERUM 133 mmol/L (136-145); UREA NITROGEN, BLOOD 7 mg/dL (7-18)
--- NOTE | 2017-02-02 18:58 | NUR ---
REPORT ENDORSED TO TERELL BALDWIN. PT STABLE.
[2017-02-02 18:59] LABS: INR 1.36 (0.87-1.13); PROTHROMBIN TIME 14.1 SECS (9.5-12.7)
[2017-02-02 19:01] LABS: ALANINE AMINOTRANSFERASE 23 U/L (12-78); ALBUMIN 3.4 g/dL (3.4-5.0); ALKALINE PHOSPHATASE 58 U/L (46-116); ASPARTATE AMINOTRANSFERASE 36 U/L (15-37); BILIRUBIN,DIRECT 0.3 mg/dL (0.0-0.2); BILIRUBIN,TOTAL 0.6 mg/dL (0.2-1.0)
[2017-02-02 19:04] LABS: TROPONIN I 0.149 ng/mL (0.00-0.056)
[2017-02-02] MEDS ORDERED: LIDOCAINE 2% JEL UROJET 10 ML MM ONE (19:29)
[2017-02-02] MEDS ORDERED: ASPIRIN 325 MG TABLET PO ONE (19:30)
--- NOTE | 2017-02-02 19:35 | NUR ---
PATIENT GIVEN BED BATH AND LINENS CHANGED
--- NOTE | 2017-02-02 19:46 | NUR ---
PATIENT RECEIVED IN NO ACUTE DISTRESS AT THIS TIME. A/O X4 ABLE TO MAKE NEEDS KNOWN. NO SOB OR PAIN NOTED AT THIS TIME. WILL GIVE MEDS ORDERED.
--- NOTE | 2017-02-02 19:54 | NUR ---
AWAITING ROOM FOR TRANSFER
--- NOTE | 2017-02-02 20:20 | NUR ---
PATIENT IS COMFORTABLE AND CLEAN. STABLE CONDITION. WILL CONTINUE TO MONITOR FOR ANY CHANGES.
--- NOTE | 2017-02-02 20:54 | NUR ---
HOSPITALIST MAGDALENO AT BEDSIDE ASSESSING/SPEAKING WITH PATIENT
--- NOTE | 2017-02-02 21:35 | NUR ---
REPORT GIVEN TO TED 318-1
[2017-02-02 22:00] VITALS: BP 159/86
[2017-02-02] MEDS: BICALUTAMIDE 50 MG TABLET PO SCH (22:00)
[2017-02-02] MEDS ORDERED: MAGNESIUM HYDROXIDE 30 ML UDC PO PRN (22:00)
[2017-02-02] MEDS ORDERED: HYDROCODONE/APAP 10/325MG 1 EA TABLET PO PRN (22:00)
[2017-02-02] MEDS ORDERED: MAG HYDROX/AL HYDROX/SIMETH 30 ML UDC PO PRN (22:00)
[2017-02-02] MEDS ORDERED: ONDANSETRON HCL/PF 4 MG/2 ML VIAL IVP PRN (22:00)
[2017-02-02] MEDS ORDERED: ACETAMINOPHEN 325 MG TABLET PO PRN (22:00)
[2017-02-02] MEDS ORDERED: Z GUARD REMEDY 2 OZ OINT TP PRN (22:00)
[2017-02-02] MEDS ORDERED: HYDROCODONE/APAP 5/325MG 1 EACH TABLET PO PRN (22:00)
--- NOTE | 2017-02-02 22:00 | NUR ---
TELE/RN OPENING NOTES PT RECEIVED FROM ER VIA MANPREET SARAVIA. ON ROOM AIR, BREATHING EVEN AND UNLABORED. DENIES SOB AND CHEST PAIN AT THIS TIME. NON PRODUCTIVE COUGH NOTED. IV TO LEFT HAND PATENT AND INTACT. ORIENTED PT TO ROOM AND CALL LIGHT. SIDE RAILS UPX2. PT LEFT SIDED WEAKNESS. PLACED ON TELE MONITOR SHOWING A.FIB WITH HR AT 53, CONTROLLED. BELONGINGS PLACED IN DRAWER AT BEDSIDE. WILL CONTINUE TO MONITOR
[2017-02-02] MEDS ORDERED: SIMVASTATIN 40 MG TABLET ONE (22:48)
[2017-02-02] MEDS ORDERED: TAMSULOSIN 0.4 MG CAP.SR.24H ONE (22:49)
[2017-02-02] MEDS ORDERED: TRAMADOL HCL 50 MG TABLET ONE (22:49)
[2017-02-02] MEDS: TAMSULOSIN 0.4 MG CAP.SR.24H PO SCH (23:10)
[2017-02-02] MEDS: SIMVASTATIN 40 MG TABLET PO SCH (23:10)
[2017-02-02] MEDS: TRAMADOL HCL 50 MG TABLET PO SCH (23:17)
--- NOTE | 2017-02-02 23:30 | NUR ---
TELE/RN NOTES UNABLE TO ADMINISTER SCHEDULED CASODEX. PT HAS NO HOME MEDICATIONS WITH HIM. CUSTOMS CONSULTANT CHECKED PYXIS ON FLOOR AND MED IS NOT AVAILABLE. NURSING SIDER MECHANIC SAYS WE DO NOT CARRY THE MEDICATION. WILL ENDORSE TO DAY SHIFT RN TO FOLLOW UP
[2017-02-03] VITALS (9 sets, daily range): BP systolic 130–142; BP diastolic 65–80
[2017-02-03] MEDS: TRAMADOL HCL 50 MG TABLET PO SCH ×3 (06:00→17:45)
--- NOTE | 2017-02-03 07:06 | NUR ---
TELE/RN CLOSING NOTES PT AWAKE, RESTING IN BED. A/OX3. ON ROOM AIR, BREATHING EVEN AND UNLABORED. DENIES SOB OR PAIN AT THIS TIME. ON TELE MONITOR SHOWING A. FIB, HR AT 57. REDNESS TO GROIN AND PERINEUM, WOUND CONSULT ORDERED. IV TO LEFT HAND PATENT AND INTACT. LEFT SIDED WEAKNESS NOTED. BED IN LOW/LOCKED POSITION WITH CALL LIGHT IN REACH. SIDE RAILS UPX2. WILL ENDORSE TO DAY SHIFT RN TO FOLLOW UP WITH SNF FOR CHEMO MEDS.
--- NOTE | 2017-02-03 07:30 | NUR ---
PT RECEIVED RESTING COMFORTABLY IN BED WITH EYES CLOSED. NO S/S OR C/O PAIN OR DISTRESS NOTED. SIDE RAILS UP X2, CALL LIGHT LEFT WITHIN REACH. WILL CONTINUE PLAN OF CARE.
[2017-02-03] MEDS ORDERED: METOPROLOL SUCCINATE 50 MG TAB.SR.24H PO SCH (09:00)
[2017-02-03 09:03] LABS: BASOPHILS # (AUTO) 0.1 /CMM (0.0-0.2); BASOPHILS % (AUTO) 0.8 % (0.0-2.0); EOSINOPHILS # (AUTO) 0.3 /CMM (0.0-0.7); EOSINOPHILS % (AUTO) 3.5 % (0.0-6.0); HEMATOCRIT 32 % (39-51); HEMOGLOBIN 9.9 g/dL (13.5-17.5); LYMPHOCYTES # (AUTO) 2.5 /CMM (0.8-4.8); LYMPHOCYTES % (AUTO) 26.8 % (20.0-44.0); MEAN CORPUSCULAR HEMOGLOBIN 24 PG (26.0-33.0); MEAN CORPUSCULAR HGB CONC 31 g/dl (31.0-36.0); MEAN CORPUSCULAR VOLUME 77 fL (80-96); MONOCYTES # (AUTO) 0.6 /CMM (0.1-1.30); MONOCYTES % (AUTO) 6.8 % (2.0-12.0); NEUTROPHILS # (AUTO) 5.8 /CMM (1.8-8.9); NEUTROPHILS % (AUTO) 62.1 % (43.0-81.0); PLATELET COUNT (AUTO) 332 /CMM (150-450); RDW COEFFICIENT OF VARIATION 22.2 (11.5-15.0); RED BLOOD CELL COUNT(AUTO) 4.11 MIL/uL (4.5-6.0); WHITE BLOOD COUNT (AUTO) 9.3 K/uL (4.3-11.0)
[2017-02-03 09:33] LABS: CALCIUM, SERUM 9.2 mg/dL (8.5-10.1); CARBON DIOXIDE 24 mmol/L (21-32); CHLORIDE 103 mmol/L (98-107); CREATININE 0.8 mg/dL (0.6-1.3); GLUCOSE 169 mg/dL (74-106); MAGNESIUM 1.6 mg/dL (1.8-2.4); PHOSPHORUS 3.4 mg/dL (2.5-4.9); POTASSIUM 3.9 mmol/L (3.5-5.1); SODIUM SERUM 139 mmol/L (136-145); UREA NITROGEN, BLOOD 8 mg/dL (7-18)
[2017-02-03] MEDS: CALCIUM CARBONATE (1250) 500 MG TABLET PO SCH ×2 (09:37→17:43)
[2017-02-03] MEDS: METFORMIN 500 MG TABLET PO SCH ×2 (09:37→17:42)
[2017-02-03] MEDS: GABAPENTIN 300 MG CAPSULE PO SCH ×2 (09:38→17:44)
[2017-02-03] MEDS: ASCORBIC ACID 500 MG TABLET PO SCH (09:38)
[2017-02-03] MEDS: POTASSIUM CHLORIDE 20 MEQ TAB.PRT.SR PO SCH ×2 (09:40→11:15)
[2017-02-03] MEDS: PIOGLITAZONE HCL 15 MG TABLET PO SCH (09:40)
[2017-02-03 09:41] LABS: CHOLESTEROL 62 mg/dL (<200); HDL CHOLESTEROL 24 mg/dL (40-60); LDL 31 mg/dL (0-99); THYROID STIMULATING HORMONE 5.883 uIU/mL (0.358-3.74); TRIGLYCERIDES 109 mg/dL (30-150)
[2017-02-03] MEDS: FERROUS SULFATE (325 MG) 325 MG/TAB TABLET PO SCH (09:41)
[2017-02-03] MEDS: OXYBUTYNIN CHLORIDE 5 MG TABLET PO SCH ×2 (09:41→17:42)
[2017-02-03] MEDS: LEVOTHYROXINE SODIUM 50 MCG TABLET PO SCH (09:41)
[2017-02-03] MEDS: LINAGLIPTIN 5 MG TABLET PO SCH (09:41)
[2017-02-03] MEDS: VALSARTAN 80 MG TABLET PO SCH (09:42)
[2017-02-03] MEDS: FUROSEMIDE 40 MG/4 ML VIAL IV SCH ×3 (09:42→17:44)
--- NOTE | 2017-02-03 10:43 | NUR ---
WOUND CARE CONSULT: PT PRESENTS WITH INCONTINENCE AND LEFT SIDED WEAKNESS. ALL SKIN PROTECTION MEASURES IN PLACE AND DISCUSSED WITH NURSING STAFF. WILL SEE PRN. PIÑA IN AGREEMENT WITH PLAN OF CARE. Addendum: 02/03/17 at 1044 by CRUZ HURD WNDNU Amended: Links added. Addendum: 02/03/17 at 1045 by CRUZ HURD WNDNU CURRENT TATIANNA SCORE NOTED TO BE 17.
[2017-02-03] MEDS ORDERED: DEXTROSE 50%-WATER 50 ML DISP.SYRIN IV PRN (13:00)
[2017-02-03] MEDS: RIVAROXABAN 10 MG TABLET PO SCH (17:42)
[2017-02-03] MEDS: PANTOPRAZOLE 40 MG TABLET.DR PO SCH (17:45)
[2017-02-03] MEDS: BLOOD SUGAR DIAGNOSTIC 1 EACH STRIP VI SCH ×2 (17:46→21:10)
[2017-02-03] MEDS: INSULIN REGULAR, HUMAN 100 UNIT/ML 3 ML VIAL SQ PRN (17:49)
[2017-02-03] MEDS: INSULIN DETEMIR 100 UNIT/ML CARTRIDGE SQ SCH (17:50)
--- NOTE | 2017-02-03 18:38 | NUR ---
RN CLOSING NOTES PATIENT SITTING IN BED COMFORTABLY WATCHING TV. NO SOB NOTED. NO SIGN OF ACUTE DISTRESS NOTED. BREATHING REGULAR AND UNLABORED. IV ACCESS AT THE LEFT HAND PATENT AND INTACT, NO REDNESS, NO S/SX OF INFILTRATION NOTED. BED IN LOW POSITION AND LOCKED. SIDE RAILS UP X2, CALL LIGHT WITHIN REACH. DUE MEDICATION GIVEN, NO ASE NOTED. WILL CONTINUE PLAN OF CARE AND ENDORSE TO EQUIPMENT SERVICES ASSOCIATE FOR THE CONTINUITY OF CARE.
--- NOTE | 2017-02-03 19:30 | NUR ---
PAVING FOREMAN OPENING NOTES: PATIENT IN BED, AOX3, ON ROOM AIR, BREATHING EVEN AND UNLABORED. BREATH SOUNDS CLEAR TO AUSCULTATION. APPEARS CALM, BUT WITHDRAWN, IN NO DISTRESS, DENIES PAIN AT THIS TIME. ON TLEE MONITORING: AFIB, CONTROLLED, AT RATE OF 58. PROVIDED FOR COMFORT AND SAFETY. BED IN LOWEST AND LOCKED POSITION, SIDERAILS UP X2, CALL LIGHT WITHIN REACH. WILL CONT TO MONITOR.
--- NOTE | 2017-02-03 19:45 | NUR ---
RN NOTES: CALLED DR KOROMA FOR MG OF 1.6. MD ORDERED FOR IV MG REPLACEMENT 1 GM. NOTED AND CARRIED OUT.
[2017-02-03] MEDS ORDERED: Magnesium 1GM/D5W 100ML PREMIX 100 ML IV SCH (20:00)
[2017-02-03] MEDS ORDERED: Magnesium 1GM/D5W 100ML PREMIX PIGGYBACK IV ONE (20:00)
[2017-02-03] MEDS: LATANOPROST EYE DROP 0.005% 2.5 ML BOTTLE EACHEYE SCH (21:14)
[2017-02-03] MEDS: BICALUTAMIDE 50 MG TABLET PO SCH (21:14)
[2017-02-03] MEDS: SIMVASTATIN 40 MG TABLET PO SCH (21:15)
[2017-02-03] MEDS: TAMSULOSIN 0.4 MG CAP.SR.24H PO SCH (21:15)
[2017-02-03] MEDS: *INSULIN REGULAR(HUMULIN R)HUM 100 UNIT/ML VIAL SQ PRN (21:22)
--- NOTE | 2017-02-03 21:27 | NUR ---
RN NOTES: BLOOD SUGAR CHECKED AT 173 MG/DL, ADMINISTERED 3 U REGULAR INSULIN PER SCALE. GAVE LIGHT SNACK. WILL CONT TO MONITOR.
[2017-02-04] VITALS (7 sets, daily range): BP systolic 115–147; BP diastolic 57–83
[2017-02-04] MEDS: TRAMADOL HCL 50 MG TABLET PO SCH ×4 (05:38→18:27)
[2017-02-04] MEDS: BLOOD SUGAR DIAGNOSTIC 1 EACH STRIP VI SCH ×4 (06:49→21:51)
[2017-02-04] MEDS: INSULIN REGULAR, HUMAN 100 UNIT/ML 3 ML VIAL SQ PRN ×2 (06:52→18:23)
[2017-02-04] MEDS: LEVOTHYROXINE SODIUM 50 MCG TABLET PO SCH (07:03)
--- NOTE | 2017-02-04 07:07 | NUR ---
WATCHER AUTOMAT LONG GOODS CLOSING NOTES: PATIENT IN BED, AOX4, ON O2 AT 2 LPM VIA NC, BREATHING EVEN AND UNLABORED, NOTED WITH OCCASIONAL COUGHING, NON PRODUCTIVE, THROUGH SHIFT. PIV OVER L HAND G 20 INTACT AND PATENT TO FLUSH. ON TELE MONITORING: AFIB AT RATE OF 60S. AM BLOOD SUGAR CHECKED AT 138 MG/DL, ADMINISTERED 2 UNITS REGULAR INSULIN PER SCALE. DUE MEDS GIVEN. PROVIDED FOR COMFORT AND SAFETY. PATIENT REMAINED AFEBRILE THROUGH NIGHT, NO ACUTE CHANGE IN CONDITION NOTED. SKIN PROTECTIVE MEASURES DONE, TURNED AND REPOSITIONED. BED IN LOWEST AND LOCKED POSITION, SIDERAILS UP X 3. WILL ENDORSE TO AM RN FOR ABRAHAM.
[2017-02-04 07:34] LABS: BASOPHILS % (AUTO) 0.4 % (0.0-2.0); EOSINOPHILS # (AUTO) 0.4 /CMM (0.0-0.7); EOSINOPHILS % (AUTO) 3.4 % (0.0-6.0); HEMATOCRIT 37 % (39-51); HEMOGLOBIN 11.3 g/dL (13.5-17.5); LYMPHOCYTES # (AUTO) 2.5 /CMM (0.8-4.8); LYMPHOCYTES % (AUTO) 23.7 % (20.0-44.0); MEAN CORPUSCULAR HEMOGLOBIN 24 PG (26.0-33.0); MEAN CORPUSCULAR HGB CONC 31 g/dl (31.0-36.0); MEAN CORPUSCULAR VOLUME 78 fL (80-96); MONOCYTES # (AUTO) 0.8 /CMM (0.1-1.30); NEUTROPHILS # (AUTO) 6.8 /CMM (1.8-8.9); NEUTROPHILS % (AUTO) 64.5 % (43.0-81.0); PLATELET COUNT (AUTO) 404 /CMM (150-450); RDW COEFFICIENT OF VARIATION 22.5 (11.5-15.0); RED BLOOD CELL COUNT(AUTO) 4.67 MIL/uL (4.5-6.0); WHITE BLOOD COUNT (AUTO) 10.6 K/uL (4.3-11.0)
[2017-02-04 07:53] LABS: ALANINE AMINOTRANSFERASE 29 U/L (12-78); ALBUMIN 3.6 g/dL (3.4-5.0); ALKALINE PHOSPHATASE 67 U/L (46-116); ASPARTATE AMINOTRANSFERASE 53 U/L (15-37); BILIRUBIN,TOTAL 0.6 mg/dL (0.2-1.0); CALCIUM, SERUM 10.1 mg/dL (8.5-10.1); CARBON DIOXIDE 29 mmol/L (21-32); CHLORIDE 96 mmol/L (98-107); GLUCOSE 129 mg/dL (74-106); MAGNESIUM 1.7 mg/dL (1.8-2.4); PHOSPHORUS 4.6 mg/dL (2.5-4.9); POTASSIUM 3.9 mmol/L (3.5-5.1); SODIUM SERUM 135 mmol/L (136-145); TOTAL PROTEIN, SERUM 8.1 g/dL (6.4-8.2); UREA NITROGEN, BLOOD 11 mg/dL (7-18)
[2017-02-04 07:54] LABS: TROPONIN I 0.111 ng/mL (0.00-0.056)
[2017-02-04] MEDS: LINAGLIPTIN 5 MG TABLET PO SCH (09:00)
[2017-02-04] MEDS: PIOGLITAZONE HCL 15 MG TABLET PO SCH (09:00)
[2017-02-04] MEDS: ASCORBIC ACID 500 MG TABLET PO SCH (09:39)
[2017-02-04] MEDS: VALSARTAN 80 MG TABLET PO SCH (09:39)
[2017-02-04] MEDS: GABAPENTIN 300 MG CAPSULE PO SCH ×2 (09:40→18:18)
[2017-02-04] MEDS: CALCIUM CARBONATE (1250) 500 MG TABLET PO SCH ×2 (09:40→18:18)
[2017-02-04] MEDS: FUROSEMIDE 40 MG TABLET PO SCH (09:41)
[2017-02-04] MEDS: FERROUS SULFATE (325 MG) 325 MG/TAB TABLET PO SCH (09:41)
[2017-02-04] MEDS: METFORMIN 500 MG TABLET PO SCH ×2 (09:41→18:26)
[2017-02-04] MEDS: POTASSIUM CHLORIDE 20 MEQ TAB.PRT.SR PO SCH (09:54)
[2017-02-04] MEDS: OXYBUTYNIN CHLORIDE 5 MG TABLET PO SCH ×2 (10:12→18:18)
[2017-02-04] MEDS ORDERED: MAGNESIUM OXIDE 400 MG TABLET PO ONE (12:00)
--- NOTE | 2017-02-04 18:00 | NUR ---
ORAL MG REPLACEMENT DONE.PT. STABLE.NO CHANGE IN STATUS.
[2017-02-04] MEDS: RIVAROXABAN 10 MG TABLET PO SCH (18:19)
[2017-02-04] MEDS: INSULIN DETEMIR 100 UNIT/ML CARTRIDGE SQ SCH (18:22)
[2017-02-04] MEDS: PANTOPRAZOLE 40 MG TABLET.DR PO SCH (18:28)
--- NOTE | 2017-02-04 19:45 | NUR ---
MS NORI INITIAL NOTES SEEN PT IN BED AWAKE AND ALERT WATCHING TV , HEPLOCK PATENT AND INTACT. DENIES ANY PAIN OR ANY DISCOMFORT.NO SOB NOTED. KEPT HIM WARM AND COMFORTABLE AT ALL TIMES. PLACE CALL LIGHT AT REACH. WILL CONTINUE TO MONITOR.
[2017-02-04] MEDS: TAMSULOSIN 0.4 MG CAP.SR.24H PO SCH (21:50)
[2017-02-04] MEDS: SIMVASTATIN 40 MG TABLET PO SCH (21:51)
[2017-02-04] MEDS: BICALUTAMIDE 50 MG TABLET PO SCH (21:51)
[2017-02-04] MEDS: LATANOPROST EYE DROP 0.005% 2.5 ML BOTTLE EACHEYE SCH (21:51)
[2017-02-04] MEDS: *INSULIN REGULAR(HUMULIN R)HUM 100 UNIT/ML VIAL SQ PRN (22:03)
--- NOTE | 2017-02-05 04:39 | NUR ---
COAL MINER/NOTES PT JUST WOKE UP AND USING URINAL, DENIES ANY PAIN OR ANY DISCOMFORT. HE STATE" I'M OK ". KEPT HIM WARM AND COMFORTABLE AT ALL TIMES. PLACE CALL LIGHT AT REACH.
[2017-02-05] MEDS: BLOOD SUGAR DIAGNOSTIC 1 EACH STRIP VI SCH ×2 (06:28→11:54)
[2017-02-05] MEDS: TRAMADOL HCL 50 MG TABLET PO SCH ×3 (06:28→12:00)
[2017-02-05] MEDS: INSULIN REGULAR, HUMAN 100 UNIT/ML 3 ML VIAL SQ PRN ×2 (06:34→11:59)
[2017-02-05 07:12] LABS: BASOPHILS % (AUTO) 0.2 % (0.0-2.0); EOSINOPHILS # (AUTO) 0.3 /CMM (0.0-0.7); EOSINOPHILS % (AUTO) 3.2 % (0.0-6.0); HEMATOCRIT 37 % (39-51); HEMOGLOBIN 11.4 g/dL (13.5-17.5); LYMPHOCYTES # (AUTO) 2.8 /CMM (0.8-4.8); MEAN CORPUSCULAR HEMOGLOBIN 24 PG (26.0-33.0); MEAN CORPUSCULAR HGB CONC 31 g/dl (31.0-36.0); MEAN CORPUSCULAR VOLUME 78 fL (80-96); MONOCYTES # (AUTO) 0.9 /CMM (0.1-1.30); MONOCYTES % (AUTO) 9.2 % (2.0-12.0); NEUTROPHILS # (AUTO) 5.7 /CMM (1.8-8.9); NEUTROPHILS % (AUTO) 58.4 % (43.0-81.0); PLATELET COUNT (AUTO) 409 /CMM (150-450); RDW COEFFICIENT OF VARIATION 22.6 (11.5-15.0); RED BLOOD CELL COUNT(AUTO) 4.72 MIL/uL (4.5-6.0); WHITE BLOOD COUNT (AUTO) 9.8 K/uL (4.3-11.0)
[2017-02-05 07:19] LABS: CALCIUM, SERUM 10.4 mg/dL (8.5-10.1); CARBON DIOXIDE 26 mmol/L (21-32); CHLORIDE 95 mmol/L (98-107); GLUCOSE 141 mg/dL (74-106); MAGNESIUM 1.6 mg/dL (1.8-2.4); POTASSIUM 4.4 mmol/L (3.5-5.1); SODIUM SERUM 132 mmol/L (136-145); UREA NITROGEN, BLOOD 12 mg/dL (7-18)
--- NOTE | 2017-02-05 07:30 | NUR ---
POCKET OPERATOR/CLOSING NOTES PT AWAKE AND ALERT WATCHING TV AT THIS TIME. BLOOD SUGAR CHECKED DONE 150, 2 UNITS OF INSULIN GIVEN ORDERED. SLEPT WELL AND STABLE ELLIE THE NIGHT. ALL DUE MED GIVEN AND ALL NEEDS MET. KEPT HIM WARM AND COMFORTABLE AT ALL TIMES. PLACE CALL LIGHT AT REACH. ENDORSE TO AM NURSE.
[2017-02-05] MEDS: LEVOTHYROXINE SODIUM 50 MCG TABLET PO SCH (07:40)
--- NOTE | 2017-02-05 07:47 | NUR ---
MS RN OPENING NOTES RECEIVED PATIENT IN STABLE CONDITION. IN NO APPARENT DISTRESS. PATIENT IS ALERT AND RESTING IN BED. BEDSIDE RAILS ARE UP X2. BED IS LOCKED AND LOWERED. CALL LIGHT IS WITHIN REACH. WILL CONTINUE TO MONITOR.
[2017-02-05 08:00] VITALS: BP 127/67
[2017-02-05] MEDS: GABAPENTIN 300 MG CAPSULE PO SCH (08:37)
[2017-02-05 08:38] VITALS: BP 127/67
[2017-02-05] MEDS: LINAGLIPTIN 5 MG TABLET PO SCH (08:38)
[2017-02-05] MEDS: VALSARTAN 80 MG TABLET PO SCH (08:38)
[2017-02-05] MEDS: FUROSEMIDE 40 MG TABLET PO SCH (08:38)
[2017-02-05] MEDS: PIOGLITAZONE HCL 15 MG TABLET PO SCH (08:38)
[2017-02-05] MEDS: METFORMIN 500 MG TABLET PO SCH (08:38)
[2017-02-05] MEDS: POTASSIUM CHLORIDE 20 MEQ TAB.PRT.SR PO SCH (08:38)
[2017-02-05] MEDS: CALCIUM CARBONATE (1250) 500 MG TABLET PO SCH (08:39)
[2017-02-05] MEDS: OXYBUTYNIN CHLORIDE 5 MG TABLET PO SCH (08:39)
[2017-02-05] MEDS: ASCORBIC ACID 500 MG TABLET PO SCH (08:39)
[2017-02-05] MEDS: FERROUS SULFATE (325 MG) 325 MG/TAB TABLET PO SCH (08:39)
[2017-02-05] MEDS ORDERED: ERGOCALCIFEROL (VITAMIN D 2) 50,000 UNIT CAPSULE PO SCH (09:00)
[2017-02-05] MEDS: Magnesium 1GM/D5W 100ML PREMIX 100 ML IV SCH ×2 (09:33→10:38)
[2017-02-05] MEDS ORDERED: FURO40TA5 PO (10:32)
[2017-02-05] MEDS ORDERED: POTA20TA83 PO (10:32)
--- NOTE | 2017-02-05 14:04 | NUR ---
PATIENT IS BEING DISCHARGED IN STABLE CONDITION. IN NO APPARENT DISTRESS. ALL NEEDS WERE MET. REPORT GIVEN TO PARAMEDICS. ID BAND REMOVED AND IV REMOVED. VITAL SIGNS WITHIN NORMAL LIMITS.
== END 2017-02-05 14:30 | DRG 280 ==
LOC: ER 17:20 → TELE 21:19 → MED 02-04 12:19
PROVIDERS: ADMIT Nurse Practitioner Acute Care; ATTEND Nurse Practitioner Acute Care
DX: I21.4 Non-ST elevation (NSTEMI) myocardial infarction (principal); I50.33 Acute on chronic diastolic (congestive) heart failure; I69.354 Hemiplegia and hemiparesis following cerebral infarction affecting left non-dominant side; I48.91 Unspecified atrial fibrillation; E83.42 Hypomagnesemia; E11.9 Type 2 diabetes mellitus without complications; D50.9 Iron deficiency anemia, unspecified; E03.9 Hypothyroidism, unspecified; I11.0 Hypertensive heart disease with heart failure; E87.6 Hypokalemia; I25.10 Atherosclerotic heart disease of native coronary artery without angina pectoris; Z85.46 Personal history of malignant neoplasm of prostate; Z79.899 Other long term (current) drug therapy; Z79.84 Long term (current) use of oral hypoglycemic drugs; Z79.01 Long term (current) use of anticoagulants; K21.9 Gastro-esophageal reflux disease without esophagitis; N40.0 Benign prostatic hyperplasia without lower urinary tract symptoms; M19.90 Unspecified osteoarthritis, unspecified site; Z98.890 Other specified postprocedural states; Z79.4 Long term (current) use of insulin; J40 Bronchitis, not specified as acute or chronic; J11.1 Influenza due to unidentified influenza virus with other respiratory manifestations
CPT/HCPCS: 36415; 71010-TC; 80048-TC; 80053-TC; 80061-TC; 80076-TC; 82962-TC; 83605-TC; 83735-TC; 84100-TC; 84443-TC; 84484-TC; 85025-TC; 85730-TC; 87040-TC; 87081-TC; 87400; J1815; J1940; J3475; J3490

== ENCOUNTER 2017-07-25 15:43 | Emergency (ER) | payer MEDICARE, OTHER ==
[~2017-07-25] VITALS: Ht 175.3 cm; Wt 96.2 kg
[~2017-07-25 15:43] MED LIST changes: -BICA50TA6 PO; +BICA50TA8 PO; -ERGO500040 PO; -FERR-58 PO; +FERR325T23 PO; +FURO40TA5 PO; +INSU3INS6 SQ; -INSU3INS6 SUBCUT; +METF-440 PO; -METF500T4 PO; -OSEL75CA PO; +PIOG30TA10 PO; +POTA20TA83 PO
--- NOTE | 2017-07-25 15:45 | NUR ---
AAOX3, BIBPA FROM [facility] C/O GUM BLEEDING S/P TOOTH EXTRACTION X YESTERDAY. NO BLEEDING NOTED AT THIS TIME. RR IS EVEN AND UNLABORED WITH NAD NOTED. SKIN IS WARM AND DRY. AWAITING MD FOR EVAL.
--- NOTE | 2017-07-25 16:14 | NUR ---
CALLED FOR MEAL TRAY - REGULAR DIET BUT SOFT FOODS ONLY - DINNER WILL NOT BE READY TILL 1700
[2017-07-25 16:19] LABS: BASOPHILS % (AUTO) 0.3 % (0.0-2.0); EOSINOPHILS % (AUTO) 0.7 % (0.0-6.0); HEMATOCRIT 33 % (39-51); HEMOGLOBIN 11.2 g/dL (13.5-17.5); LYMPHOCYTES # (AUTO) 2.2 /CMM (0.8-4.8); LYMPHOCYTES % (AUTO) 19.5 % (20.0-44.0); MEAN CORPUSCULAR HGB CONC 34 g/dl (31.0-36.0); MEAN CORPUSCULAR VOLUME 85 fL (80-96); MONOCYTES # (AUTO) 1.1 /CMM (0.1-1.30); MONOCYTES % (AUTO) 9.5 % (2.0-12.0); PLATELET COUNT (AUTO) 234 /CMM (150-450); RED BLOOD CELL COUNT(AUTO) 3.81 MIL/uL (4.5-6.0); WHITE BLOOD COUNT (AUTO) 11.4 K/uL (4.3-11.0)
[2017-07-25] MEDS ORDERED: DOCU-141 PO (16:27)
[2017-07-25] MEDS ORDERED: IBUP-1957 PO (16:27)
[2017-07-25] MEDS ORDERED: AMOX500C2 PO (16:27)
[2017-07-25] MEDS ORDERED: SENN-167 PO (16:27)
[2017-07-25 16:30] LABS: INR 1.04 (0.85-1.15)
--- NOTE | 2017-07-25 16:47 | NUR ---
SET UP BLS RIG WITH MARIE PHILLIP 11 MIN - TRIP# [id number]
[2017-07-25 17:12] VITALS: BP 139/75
--- NOTE | 2017-07-25 17:12 | NUR ---
Patient discharged to home in stable condition. Written and verbal after care instructions given. Patient verbalizes understanding of instruction.
== END 2017-07-25 17:13 | disposition home or self-care (01) ==
LOC: ER 15:46
DX: K91.840 Postprocedural hemorrhage of a digestive system organ or structure following a digestive system procedure (principal); K08.409 Partial loss of teeth, unspecified cause, unspecified class; I10 Essential (primary) hypertension; K21.9 Gastro-esophageal reflux disease without esophagitis; E11.9 Type 2 diabetes mellitus without complications; Z86.73 Personal history of transient ischemic attack (TIA), and cerebral infarction without residual deficits; Z85.46 Personal history of malignant neoplasm of prostate; Z90.89 Acquired absence of other organs; Z79.84 Long term (current) use of oral hypoglycemic drugs
CPT/HCPCS: 36415; 85025-TC; 85610-TC; A4606; Z7610

== ENCOUNTER 2018-11-23 13:44 | Emergency (ER) | payer MEDICARE, OTHER ==
[~2018-11-23] VITALS: Ht 172.7 cm; Wt 111.1 kg
[~2018-11-23 13:44] MED LIST changes: +AMOX500C2 PO; +DOCU-141 PO; -FURO40TA5 PO; +IBUP-1957 PO; -METO-357 PO; -POTA20TA83 PO; +SENN-168 PO; +SIMV-49 PO; -SIMV40TA5 PO
--- NOTE | 2018-11-23 13:58 | NUR ---
"BIB [facility] FOR WORSENING LLE EDEMA AND PAIN X 2 DAYS." PT AAOX4, -SOB, NAD NOTED, VSS, PENDING MD VAIL
[2018-11-23] MEDS ORDERED: TRAZ-182 PO (14:36)
[2018-11-23] MEDS ORDERED: TOLT2CAP PO (14:36)
[2018-11-23] MEDS ORDERED: DICL100G16 TP (14:36)
[2018-11-23] MEDS ORDERED: CALC500T51 PO (14:36)
[2018-11-23] MEDS ORDERED: METO25TA4 PO (14:36)
[2018-11-23] MEDS ORDERED: CYAN10006 IM (14:36)
[2018-11-23 15:00] LABS: BASOPHILS # (AUTO) 0.1 /CMM (0.0-0.2); BASOPHILS % (AUTO) 0.6 % (0.0-2.0); HEMATOCRIT 32 % (39-51); HEMOGLOBIN 10.7 g/dL (13.5-17.5); LYMPHOCYTES # (AUTO) 1.5 /CMM (0.8-4.8); MEAN CORPUSCULAR HGB CONC 33 g/dl (31.0-36.0); MEAN CORPUSCULAR VOLUME 98 fL (80-96); MONOCYTES # (AUTO) 0.8 /CMM (0.1-1.30); MONOCYTES % (AUTO) 9.7 % (2.0-12.0); NEUTROPHILS # (AUTO) 5.6 /CMM (1.8-8.9); NEUTROPHILS % (AUTO) 66.7 % (43.0-81.0); PLATELET COUNT (AUTO) 215 /CMM (150-450); RED BLOOD CELL COUNT(AUTO) 3.29 MIL/uL (4.5-6.0); WHITE BLOOD COUNT (AUTO) 8.5 K/uL (4.3-11.0)
[2018-11-23 15:08] LABS: CREATININE 1.1 mg/dL (0.6-1.3); POTASSIUM 4.8 mmol/L (3.5-5.1)
[2018-11-23 15:27] LABS: ALBUMIN 3.5 g/dL (3.4-5.0); BILIRUBIN,DIRECT 0.2 mg/dL (0.0-0.2); BILIRUBIN,TOTAL 0.5 mg/dL (0.2-1.0); TOTAL PROTEIN, SERUM 7.2 g/dL (6.4-8.2)
--- NOTE | 2018-11-23 16:19 | NUR ---
CALLED [facility] FOR TRANSFER BACK. ETA 10 MINUTES. TRIP NUMBER [id number].
--- NOTE | 2018-11-23 16:53 | NUR ---
Patient discharged to home in stable condition. Written and verbal after care instructions given. Patient verbalizes understanding of instruction. IV removed. Catheter intact and site benign. Pressure and 4x4 applied to site. No bleeding noted.
[2018-11-23 16:54] VITALS: BP 142/80
== END 2018-11-23 16:55 | disposition home or self-care (01) ==
LOC: ER 13:45
DX: R60.0 Localized edema (principal); D64.9 Anemia, unspecified; I10 Essential (primary) hypertension; E11.9 Type 2 diabetes mellitus without complications; E78.5 Hyperlipidemia, unspecified; E03.9 Hypothyroidism, unspecified; K21.9 Gastro-esophageal reflux disease without esophagitis; E66.9 Obesity, unspecified; Z68.37 Body mass index [BMI] 37.0-37.9, adult; Z90.89 Acquired absence of other organs; Z86.73 Personal history of transient ischemic attack (TIA), and cerebral infarction without residual deficits; Z85.46 Personal history of malignant neoplasm of prostate; Z79.4 Long term (current) use of insulin
CPT/HCPCS: 36415; 71045-TC; 80048-TC; 80076-TC; 83880; 85025-TC; 93970-TC

== ENCOUNTER 2018-12-13 15:34 | Emergency (ER) | payer MEDICARE, OTHER ==
[~2018-12-13] VITALS: Ht 172.7 cm; Wt 108.4 kg
[~2018-12-13 15:34] MED LIST changes: -AMOX500C2 PO; +CYAN10006 IM; +DICL100G16 TP; +METO-356 PO; -SIMV-49 PO; +SIMV40TA5 PO; +TOLT2CAP PO; -TRAV5DRO EACHEYE; +TRAZ-182 PO
--- NOTE | 2018-12-13 15:40 | NUR ---
PT MAR, FROM [facility], C/O GEN WEAKNESS x 3 WEEKS, PT STATES THAT HE LACKS ENERGY. PT AAOX4, VSS, BREATHING EVEN AND UNLABORED IN ROOM AIR W/ NO ACUTE DISTRESS NOTED. PT CONNECTED TO THE MONITOR. BLOOD SENT TO THE LAB
[2018-12-13] MEDS ORDERED: KETO15CR2 TP (15:49)
[2018-12-13] MEDS ORDERED: TRIA80CR12 TP (15:49)
[2018-12-13] MEDS ORDERED: CHOL100044 PO (15:49)
[2018-12-13] MEDS ORDERED: TRAV5DRO EACHEYE (15:49)
[2018-12-13] MEDS ORDERED: IV NS 0.9% 1,000 ML BAG IV ONE (16:00)
[2018-12-13 16:02] LABS: BASOPHILS # (AUTO) 0.1 /CMM (0.0-0.2); BASOPHILS % (AUTO) 1.3 % (0.0-2.0); EOSINOPHILS % (AUTO) 4.5 % (0.0-6.0); HEMATOCRIT 37 % (39-51); HEMOGLOBIN 12.2 g/dL (13.5-17.5); LYMPHOCYTES # (AUTO) 1.7 /CMM (0.8-4.8); LYMPHOCYTES % (AUTO) 25.9 % (20.0-44.0); MEAN CORPUSCULAR HGB CONC 33 g/dl (31.0-36.0); MEAN CORPUSCULAR VOLUME 97 fL (80-96); MONOCYTES # (AUTO) 0.6 /CMM (0.1-1.30); MONOCYTES % (AUTO) 9.2 % (2.0-12.0); NEUTROPHILS # (AUTO) 3.9 /CMM (1.8-8.9); NEUTROPHILS % (AUTO) 59.1 % (43.0-81.0); PLATELET COUNT (AUTO) 246 /CMM (150-450); RED BLOOD CELL COUNT(AUTO) 3.82 MIL/uL (4.5-6.0); WHITE BLOOD COUNT (AUTO) 6.5 K/uL (4.3-11.0)
[2018-12-13 16:19] LABS: ALANINE AMINOTRANSFERASE 14 U/L (12-78); ALBUMIN 4.1 g/dL (3.4-5.0); ALKALINE PHOSPHATASE 65 U/L (46-116); ASPARTATE AMINOTRANSFERASE 16 U/L (15-37); BILIRUBIN,DIRECT 0.2 mg/dL (0.0-0.2); BILIRUBIN,TOTAL 0.5 mg/dL (0.2-1.0); CALCIUM, SERUM 9.1 mg/dL (8.5-10.1); CARBON DIOXIDE 26 mmol/L (21-32); CHLORIDE 99 mmol/L (98-107); GLUCOSE 132 mg/dL (74-106); POTASSIUM 4.2 mmol/L (3.5-5.1); SODIUM SERUM 135 mmol/L (136-145); UREA NITROGEN, BLOOD 9 mg/dL (7-18)
[2018-12-13 17:40] LABS: APPEARANCE,URINE Clear (CLEAR); BILIRUBIN,URINE Negative (NEGATIVE); BLOOD, URINE Negative Ery/uL (NEGATIVE); COLOR,URINE Yellow (YELLOW); KETONES,URINE Negative (NEGATIVE); LEUKOCYTE ESTERASE ,URINE Negative (NEGATIVE); NITRITE, URINE Negative (NEGATIVE); PROTEIN,URINE Negative (NEGATIVE); UGLUCOSE Negative (NEGATIVE); UROBILINOGEN,URINE 0.2 EU/dL (0.2)
--- NOTE | 2018-12-13 18:33 | NUR ---
YOHANNES ETA 2029 TRIP#[id number]
--- NOTE | 2018-12-13 18:50 | NUR ---
REPORT GIVEN TO AJCK 9ADMINISTRATOR OF THE RESIDENCES AT THE [facility]), AWARE OF ELEVATED BP, OK TO GO BACK TO FACILITY.
--- NOTE | 2018-12-13 19:25 | NUR ---
Note rebecca in ED - 12/13/18 at 1926 by AGNES PT RECEIVED IN BED. NAD NOTED.
--- NOTE | 2018-12-13 19:26 | NUR ---
PT RECEIVED IN BED EATING. NAD NOTED
--- NOTE | 2018-12-13 20:56 | NUR ---
[facility]AN[facility] 129 AT BEDSIDE FOR PT TRANSPRT TO [facility]. REPORT GIVEN TO AMBULANCE STAFF. PT IS STABLE FOR TRANSPORT. NAD NOTED
[2018-12-13 20:57] VITALS: BP 149/57
== END 2018-12-13 20:59 | disposition home or self-care (01) ==
LOC: ER 15:37
DX: R53.1 Weakness (principal); G81.90 Hemiplegia, unspecified affecting unspecified side; I48.91 Unspecified atrial fibrillation; I10 Essential (primary) hypertension; K21.9 Gastro-esophageal reflux disease without esophagitis; E11.9 Type 2 diabetes mellitus without complications; E03.9 Hypothyroidism, unspecified; Z85.46 Personal history of malignant neoplasm of prostate; Z90.89 Acquired absence of other organs; Z79.899 Other long term (current) drug therapy; Z86.73 Personal history of transient ischemic attack (TIA), and cerebral infarction without residual deficits; Z79.4 Long term (current) use of insulin
CPT/HCPCS: 36415; 80048-TC; 80076-TC; 81000-TC; 84484-TC; 85025-TC